=== PATIENT | female | born 1960 | race Caucasian/White ===

== ENCOUNTER → 2017-02-05 | Outpatient (CLI) | payer BC ==
--- NOTE | 2017-02-05 12:08 | RADIOLOGY REPORT (SQ) ---
EXAM DESCRIPTION: HAND BILATERAL 3 VIEWS COMPLETED DATE/TIME: 02/05/2017 11:59 am REASON FOR STUDY: RHEUMATOID HEART DISEASE W RHEUMATOID ARTHRITIS [facility] SITE M05.39 RHEUMATOID HEART DISEASE W RHEUMATOID ARTHRITIS [facility] COMPARISON: None. EXAM PARAMETERS: NUMBER OF VIEWS: Three views right hand. Three views left hand. TECHNIQUE: AP, lateral and oblique radiographic images acquired of bilateral hands. LIMITATIONS: None. FINDINGS: RIGHT HAND: MINERALIZATION: Normal. BONES: No acute fracture or dislocation. No worrisome bone lesions. No significant osteophytes. JOINTS: No erosions. No austen-articular osteopenia. No chondrocalcinosis. SOFT TISSUES: No swelling. No calcifications. OTHER: No other significant finding. LEFT HAND: MINERALIZATION: Normal. BONES: No acute fracture or dislocation. No worrisome bone lesions. No significant osteophytes. JOINTS: No erosions. No austen-articular osteopenia. No chondrocalcinosis. SOFT TISSUES: No swelling. No calcifications. OTHER: No other significant finding. IMPRESSION: NEGATIVE STUDY BILATERAL HANDS. NO ACUTE POST-TRAUMATIC CHANGES. NO EXPLANATION FOR PAIN . NO PLAIN FILM EVIDENCE OF RHEUMATOID ARTHRITIS OF THE RIGHT OR LEFT HAND TECHNICAL DOCUMENTATION: JOB ID: [id number] [employer]- All Rights Reserved
--- NOTE | 2017-02-05 12:15 | RADIOLOGY REPORT (SQ) ---
EXAM DESCRIPTION: KNEE BILAT AP UPRIGHT COMPLETED DATE/TIME: 02/05/2017 11:58 am REASON FOR STUDY: RHEUMATOID HEART DISEASE W RHEUMATOID ARTHRITIS [facility] SITE M05.39 RHEUMATOID HEART DISEASE W RHEUMATOID ARTHRITIS [facility] COMPARISON: None. NUMBER OF VIEWS: Two views. TECHNIQUE: AP standing bilateral knees. LIMITATIONS: None. FINDINGS: MINERALIZATION: Normal. RIGHT KNEE BONES: No acute fracture. No worrisome bone lesions. MEDIAL COMPARTMENT: Small osteophytes. Mild joint space narrowing. No chondrocalcinosis. LATERAL COMPARTMENT: No significant osteophytes. No joint space narrowing. No chondrocalcinosis. LEFT KNEE BONES: No acute fracture. No worrisome bone lesions. MEDIAL COMPARTMENT: No significant osteophytes. Mild joint space narrowing. No chondrocalcinosis. LATERAL COMPARTMENT: No significant osteophytes. No joint space narrowing. No chondrocalcinosis. IMPRESSION: Mild bilateral medial knee compartment joint space narrowing TECHNICAL DOCUMENTATION: JOB ID: [id number] [employer]- All Rights Reserved
== END ==
LOC: OD 11:39
PROVIDERS: ATTEND Internal Medicine
DX: M05.39 Rheumatoid heart disease with rheumatoid arthritis of multiple sites (principal)
CPT/HCPCS: 73565

== ENCOUNTER → 2017-07-13 | Outpatient (CLI) | payer BC ==
[2017-07-18 03:36] LABS: E001-IGE CAT DANDER <0.10 kU/L (Class 0); E005-IGE DOG DANDER <0.10 kU/L (Class 0); G002-IGE BERMUDA GRASS 0.11 kU/L (Class 0/I); G008-IGE BLUEGRASS KENTUCKY 0.14 kU/L (Class 0/I); M006-IGE ALTERNARIA ALTERNATA <0.10 kU/L (Class 0); T008-IGE ELM AMERICAN (WHITE 0.72 kU/L (Class II); W001-IGE RAGWEED SHORT/COMMO 0.15 kU/L (Class 0/I); W009-IGE PLANTAIN ENGLISH 0.18 kU/L (Class 0/I)
[2017-07-18 14:39] LABS: E072-IGE MOUSE URINE <0.10 kU/L (Class 0)
== END ==
LOC: OD 16:33
PROVIDERS: ATTEND Internal Medicine
DX: T78.40XS Allergy, unspecified, sequela (principal)
CPT/HCPCS: 36415; 86003

== ENCOUNTER → 2017-08-19 | Outpatient (CLI) | payer BC ==
--- NOTE | 2017-08-19 12:21 | WOMENS IMAGING REPORT ---
EXAM DESCRIPTION: BILAT SCREENING MAMMO W/CAD COMPLETED DATE/TIME: 08/19/2017 9:28 am REASON FOR STUDY: SCREENING MAMMO Z12.31 ENCNTR SCREEN MAMMOGRAM FOR MALIGNANT NEOPLASM OF [place] COMPARISON: 03/28/2015 and 06/28/2012. TECHNIQUE: Standard craniocaudal and mediolateral oblique views of each breast recorded using [employer] l acquisition. LIMITATIONS: None. FINDINGS: No masses, calcifications or architectural distortion. No areas of suspicion. Read with the assistance of CAD. .[facility] - R2 Cenova Version 1.3 .[facility] Imaging - R2 Cenova Version 1.3 .[facility] Imaging - R2 Cenova Version 2.4 .[facility] - R2 Cenova Version 2.4 .[facility] - R2 Stained Glass Joiner Version 9.2 IMPRESSION: NORMAL MAMMOGRAM. BIRADS 1. BREAST DENSITY: b. There are scattered areas of fibroglandular density. BIRAD: 1 NEGATIVE RECOMMENDATION: ROUTINE SCREENING COMMENT: The patient has been notified of the results by letter per SA requirements. Additional no tification policies are in place for contacting patient with suspicious or incomplete findings. Quality ID #[id number]: The [employer] recommends an annual screening mammogram for women aged 40 years or over. This facility utilizes a reminder system to ensure that all patients receive reminder letters, and/or direct phone calls for appointments. This includes reminders for routine scr eening mammograms, diagnostic mammograms, or other Breast Imaging Interventions when appropriate. Th is patient will be placed in the appropriate reminder system. The [employer] (ACR) has developed recommendations for screening MRI of the breast s in certain patient populations, to be used in conjunction with mammography. Breast MRI surveillanc e may be appropriate for women with more than 20% lifetime risk of developing breast cancer as deter mined by genetic testing, significant family history of the disease, or history of mantle radiation f or Hodgkins Disease. ACR Practice Guidelines 2008. TECHNICAL DOCUMENTATION: FINDING NUMBER: (1) ASSESSMENT: (1) JOB ID: [id number] [employer]- All Rights Reserved
== END ==
LOC: WI 09:13
PROVIDERS: ATTEND Internal Medicine
DX: Z12.31 Encounter for screening mammogram for malignant neoplasm of breast (principal)
CPT/HCPCS: 77067; G0202

== ENCOUNTER → 2017-10-26 | Outpatient (CLI) | payer BC ==
--- NOTE | 2017-10-26 18:05 | RADIOLOGY REPORT (SQ) ---
EXAM DESCRIPTION: MRA HEAD WITHOUT COMPLETED DATE/TIME: 10/26/2017 5:54 pm REASON FOR STUDY: HEADACHE R51 HEADACHE COMPARISON: MRI of the brain dated July 2016 TECHNIQUE: Axial 3-D nlif-rr-[id number] acquisition imaging performed through the brain in the area of t he [place] of [place]. Images reformatted using 3-D MIPS. LIMITATIONS: None. FINDINGS: SOURCE IMAGES: No unexpected findings on source images. No large masses. 3-D MIP: No aneurysm. No occlusions. No significant stenosis. OTHER: No other significant finding. IMPRESSION: NORMAL MRA OF THE [place]. TECHNICAL DOCUMENTATION: JOB ID: [id number] [employer]- All Rights Reserved Reading location - IP/workstation name: [email or web address]
== END ==
LOC: RAD 17:09
PROVIDERS: ATTEND Internal Medicine
DX: R51 Headache (principal)
CPT/HCPCS: 70544

== ENCOUNTER 2017-10-27 11:13 | Emergency (ER) | payer BC ==
--- NOTE | 2017-10-27 11:31 | RADIOLOGY REPORT (SQ) ---
EXAM DESCRIPTION: CT HEAD WITHOUT COMPLETED DATE/TIME: 10/27/2017 11:24 am REASON FOR STUDY: POSS STROKE COMPARISON: None. TECHNIQUE: Axial images acquired through the brain without intravenous contrast. Images reviewed wi th bone, brain and subdural windows. Images stored on PACS. All CT scanners at this facility use dose modulation, iterative reconstruction, and/or weight based d osing when appropriate to reduce radiation dose to as low as reasonably achievable (ALARA). [facility]: Dose Right [facility]: CareDose [facility]: Dose Right [facility]: Teradose 4D [facility]: [employer] RADIATION DOSE: mGy. LIMITATIONS: None. FINDINGS: VENTRICLES: Normal size and contour. CEREBRUM: No masses. No hemorrhage. No midline shift. No evidence for acute infarction. Normal gra y/white matter differentiation. No areas of low density in the white matter. CEREBELLUM: No masses. No hemorrhage. No alteration of density. No evidence for acute infarction. EXTRAAXIAL SPACES: No fluid collections. No masses. ORBITS AND GLOBE: No intra- or extraconal masses. Normal contour of globe without masses. CALVARIUM: No fracture. PARANASAL SINUSES: No fluid or mucosal thickening. SOFT TISSUES: No mass or hematoma. OTHER: No other significant finding. IMPRESSION: NORMAL BRAIN CT WITHOUT CONTRAST. EVIDENCE OF ACUTE STROKE: NO. COMMENT: Quality ID # [id number]: Final reports with documentation of one or more dose reduction techniques (e.g., Automated exposure control, adjustment of the mA and/or kV according to patient size, use of iterative reconstruction technique) TECHNICAL DOCUMENTATION: JOB ID: [id number] [employer]- All Rights Reserved Reading location - IP/workstation name: [email or web address]
[2017-10-27] MEDS ORDERED: NORMAL SALINE 1000 ML 1,000 ML IV ONE (11:39)
[2017-10-27] MEDS ORDERED: PROCHLORPERAZINE EDISYLATE INJ 10 MG/2 ML VIAL IV ONE (11:39)
[2017-10-27 11:40] LABS: INTERNATIONAL RATION (INR) 0.86; PARTIAL THROMBOPLASTIN TIME 24.9 SEC (23.5-35.8); PROTHROMBIN TIME 12.4 SEC (11.4-15.4)
[2017-10-27 11:47] LABS: ABSOLUTE BASOPHILS # (AUTO) 0.1 10^3/uL (0.0-0.2); ABSOLUTE EOSINOPHILS # (AUTO) 0.1 10^3/uL (0.0-0.6); ABSOLUTE LYMPHOCYTES (AUTO) 2.1 10^3/uL (0.5-4.7); ABSOLUTE MONOCYTES (AUTO) 0.7 10^3/uL (0.1-1.4); ABSOLUTE NEUT (AUTO) 3.6 10^3/uL (1.7-8.2); HEMATOCRIT 37.9 % (36.0-47.0); HEMOGLOBIN 13.1 g/dL (12.0-15.5); LYMPHOCYTES % (AUTO) 31.7 % (13-45); MEAN CORPUSCULAR HEMOGLOBIN 29.3 pg (27.0-33.4); MEAN CORPUSCULAR HGB CONC 34.5 g/dL (32.0-36.0); MEAN CORPUSCULAR VOLUME 85 fl (80-97); MONOCYTES % (AUTO) 11.1 % (3-13); PLATELET COUNT 237 10^3/uL (150-450); RED BLOOD COUNT 4.46 10^6/uL (3.72-5.28); RED CELL DISTRIBUTION WIDTH 13.1 % (11.5-14.0); SEGMENTED NEUTROPHILS % (AUTO) 54.2 % (42-78); TOTAL CELLS COUNTED % (AUTO) 100 %; WHITE BLOOD COUNT 6.7 10^3/uL (4.0-10.5)
--- NOTE | 2017-10-27 12:04 | RADIOLOGY REPORT (SQ) ---
EXAM DESCRIPTION: CHEST SINGLE VIEW COMPLETED DATE/TIME: 10/27/2017 11:50 am REASON FOR STUDY: bed 12 stroke alert COMPARISON: April 2009 EXAM PARAMETERS: NUMBER OF VIEWS: One view. TECHNIQUE: Single frontal radiographic view of the chest acquired. RADIATION DOSE: NA LIMITATIONS: None. FINDINGS: LUNGS AND PLEURA: No opacities, masses or pneumothorax. No pleural effusion. MEDIASTINUM AND HILAR STRUCTURES: No masses. Contour normal. HEART AND VASCULAR STRUCTURES: Heart normal in size. Normal vasculature. BONES: No acute findings. HARDWARE: None in the chest. OTHER: No other significant finding. IMPRESSION: NO ACUTE RADIOGRAPHIC FINDING IN THE CHEST. TECHNICAL DOCUMENTATION: JOB ID: [id number] [employer]- All Rights Reserved Reading location - IP/workstation name: [email or web address]
[2017-10-27 12:12] LABS: ALANINE AMINOTRANSFERASE 38 U/L (9-52); ALBUMIN 4.7 g/dL (3.5-5.0); ALKALINE PHOSPHATASE 97 U/L (38-126); ANION GAP 13 (5-19); ASPARTATE AMINO TRANSFERASE 27 U/L (14-36); BILIRUBIN,DIRECT 0.1 mg/dL (0.0-0.4); BILIRUBIN,TOTAL 0.3 mg/dL (0.2-1.3); BLOOD UREA NITROGEN 14 mg/dL (7-20); CALCIUM 9.9 mg/dL (8.4-10.2); CARBON DIOXIDE 25 mmol/L (22-30); CHLORIDE 103 mmol/L (98-107); CREATINE KINASE 122 U/L (30-135); GLUCOSE 132 mg/dL (75-110); POTASSIUM 3.8 mmol/L (3.6-5.0); SODIUM 141.2 mmol/L (137-145); TOTAL PROTEIN 7.3 g/dL (6.3-8.2)
[2017-10-27 12:19] LABS: CREATINE KINASE MB 1.01 ng/mL (<4.55)
[2017-10-27 12:22] LABS: TROPONIN I < 0.012 ng/mL
[2017-10-27] MEDS ORDERED: DEXAMETHASONE SOD PHOS INJ 10 MG/1 ML VIAL IV ONE (12:26)
--- NOTE | 2017-10-27 12:57 | ER Document Report ---
ED Headache - General Chief Complaint: Headache Stated Complaint: POSSIBLE STROKE Time Seen by Provider: 10/27/17 11:27 Mode of Arrival: Medic Information source: Patient Notes: Patient is a 56-year-old female who presents to the ER today via EMS for left sided headache 5 days with some numbness intermittently to the left side of the face. Patient denies any numbness, tingling, weakness anywhere else in her body. Patient states that she saw her primary care provider for this who ordered an MRI that was performed yesterday and normal. She does take medication for blood pressure but denies any history of high cholesterol, heart attack, stroke. TRAVEL OUTSIDE OF THE [place] IN LAST 30 DAYS: No - Related Data Allergies/Adverse Reactions: ibuprofen [From Motrin] Allergy (Verified 10/27/17 11:59) Past Medical History - General Information source: Patient - Social History Smoking Status: Unknown if Ever Smoked Family History: Reviewed & Not Pertinent Patient has suicidal ideation: No Patient has homicidal ideation: No Neurological Medical History: Reports: Hx Migraine Renal/ Medical History: Denies: Hx Peritoneal Dialysis Review of Systems - Review of Systems Constitutional: No symptoms reported EENT: No symptoms reported Cardiovascular: No symptoms reported Respiratory: No symptoms reported Gastrointestinal: No symptoms reported Genitourinary: No symptoms reported Female Genitourinary: No symptoms reported Musculoskeletal: No symptoms reported Skin: No symptoms reported Hematologic/Lymphatic: No symptoms reported Neurological/Psychological: See HPI Physical Exam - Vital signs Vitals: Resp Pulse Ox 17 99 10/27/17 11:24 10/27/17 11:24 - Notes Notes: PHYSICAL EXAMINATION: GENERAL: Anxious appearing, but in no acute distress. HEAD: Atraumatic, normocephalic. EYES: Pupils equal round and reactive to light, extraocular movements intact, sclera anicteric, conjunctiva are normal. NECK: Normal range of motion, supple without lymphadenopathy LUNGS: CTAB and equal. No wheezes rales or rhonchi. HEART: Regular rate and rhythm without murmurs ABDOMEN: Soft, no tenderness. No guarding, no rebound BACK: no vertebral tenderness, normal ROM GI/: no CVA tenderness EXTREMITIES: Normal range of motion, no pitting edema. No cyanosis. NEUROLOGICAL: Cranial nerves grossly intact. Normal sensory/motor exams. Good and equal strength bilaterally, Kernig and Brudzinski's signs negative, Romberg' s test normal, normal heel to stauffer testing PSYCH: Normal mood, normal affect. SKIN: Warm, Dry, normal turgor, no rashes or lesions noted Course - Re-evaluation Re-evalutation: 10/27/17 12:55 Patient has no neuro deficits. Patient feels 100% better after IV fluids, Compazine and Decadron. CAT scan of the head is negative today. I did look at the MRA from yesterday that was also negative. Patient has no increased pain, weakness, numbness or tingling sense being seen by her primary care provider, just "could not take it anymore" and so she came into the ER today. I advised that she follow-up with her primary care provider about this and will send her home with some medication for migraine. - Vital Signs Vital signs: Temp Pulse Resp BP Pulse Ox 98.2 F 75 11 L 134/76 H 98 10/27/17 11:52 10/27/17 11:52 10/27/17 13:01 10/27/17 13:01 10/27/17 13:01 - Laboratory Result Diagrams: 10/27/17 11:23 10/27/17 11:23 Laboratory results interpreted by me: 10/27/17 11:23 Glucose 132 H Discharge - Discharge Clinical Impression: Migraine Qualifiers: Migraine type: unspecified Status migrainosus presence: without status migrainosus Intractability: not intractable Qualified Code(s): G43.909 - Migraine, unspecified, not intractable, without status migrainosus Condition: Stable Disposition: HOME, SELF-CARE Additional Instructions: Return immediately for any new or worsening symptoms. Follow up with primary care provider, call tomorrow to make followup appointment. Prescriptions: Promethazine HCl [Phenergan 25 mg Tablet] 1 - 2 tab PO Q6H PRN #15 tablet PRN Reason: Referrals: JOSE F EASON MD [Primary Care Provider] - Follow up as needed
[2017-10-27 13:19] VITALS: BP 134/76
--- NOTE | 2017-10-27 21:19 | EKG REPORT ---
SEVERITY:- NORMAL ECG - SINUS RHYTHM : Confirmed by: Regulo Emanuel 27-Oct-2017 21:19:19
== END 2017-10-27 13:24 | disposition home or self-care (01) ==
LOC: ER 11:13
DX: G43.909 Migraine, unspecified, not intractable, without status migrainosus (principal); R20.0 Anesthesia of skin; Z79.899 Other long term (current) drug therapy; Z88.6 Allergy status to analgesic agent
CPT/HCPCS: 93005; 99284; 96361; 96374; 96375; 36415; 82553; 82550; 85025; 85610; 85730; 80053; 84484; 71045; 70450; 93010; J0780; J7030; J1100

== ENCOUNTER 2017-11-01 16:14 | Emergency (ER) | payer BC ==
[2017-11-01] MEDS ORDERED: ONDANSETRON 4 MG TAB.RAPDIS PO ONE (17:25)
[2017-11-01] MEDS ORDERED: HYDROMORPHONE HCL 2 MG TABLET PO ONE (17:25)
--- NOTE | 2017-11-01 17:26 | ER Document Report ---
ED Medical Screen (RME) - General Chief Complaint: Headache <24 hrs old Stated Complaint: HEADACHE Time Seen by Provider: 11/01/17 17:19 Mode of Arrival: Ambulatory Information source: Patient Notes: 56-year-old female with a recent neurologic workup presenting with worsening migraine in the setting of elevated blood pressure. TRAVEL OUTSIDE OF THE [place] IN LAST 30 DAYS: No - Related Data Allergies/Adverse Reactions: ibuprofen [From Motrin] Allergy (Verified 11/01/17 16:19) Past Medical History Neurological Medical History: Reports: Hx Migraine Renal/ Medical History: Denies: Hx Peritoneal Dialysis Physical Exam - Vital signs Vitals: Temp Pulse Resp BP Pulse Ox 97.8 F 71 24 H 179/86 H 99 11/01/17 16:35 11/01/17 16:35 11/01/17 16:35 11/01/17 16:35 11/01/17 16:35 Course - Vital Signs Vital signs: Temp Pulse Resp BP Pulse Ox 97.8 F 71 24 H 179/86 H 99 11/01/17 16:35 11/01/17 16:35 11/01/17 16:35 11/01/17 16:35 11/01/17 16:35 Doctor's Discharge - Discharge Referrals: JOSE F EASON MD [Primary Care Provider] - Follow up as needed
[2017-11-01 18:57] LABS: ABSOLUTE BASOPHILS # (AUTO) 0.1 10^3/uL (0.0-0.2); ABSOLUTE EOSINOPHILS # (AUTO) 0.2 10^3/uL (0.0-0.6); ABSOLUTE LYMPHOCYTES (AUTO) 1.9 10^3/uL (0.5-4.7); ABSOLUTE MONOCYTES (AUTO) 0.9 10^3/uL (0.1-1.4); ABSOLUTE NEUT (AUTO) 6.3 10^3/uL (1.7-8.2); BASOPHILS % (AUTO) 0.6 % (0-2); HEMATOCRIT 40.6 % (36.0-47.0); LYMPHOCYTES % (AUTO) 20.7 % (13-45); MEAN CORPUSCULAR HEMOGLOBIN 28.9 pg (27.0-33.4); MEAN CORPUSCULAR HGB CONC 34.4 g/dL (32.0-36.0); MEAN CORPUSCULAR VOLUME 84 fl (80-97); MONOCYTES % (AUTO) 9.9 % (3-13); PLATELET COUNT 296 10^3/uL (150-450); RED BLOOD COUNT 4.82 10^6/uL (3.72-5.28); RED CELL DISTRIBUTION WIDTH 13.1 % (11.5-14.0); SEGMENTED NEUTROPHILS % (AUTO) 66.8 % (42-78); TOTAL CELLS COUNTED % (AUTO) 100 %; WHITE BLOOD COUNT 9.4 10^3/uL (4.0-10.5)
[2017-11-01 19:02] LABS: INTERNATIONAL RATION (INR) 0.88; PROTHROMBIN TIME 12.6 SEC (11.4-15.4)
[2017-11-01 19:15] LABS: ALANINE AMINOTRANSFERASE 35 U/L (9-52); ALBUMIN 4.9 g/dL (3.5-5.0); ALKALINE PHOSPHATASE 99 U/L (38-126); ANION GAP 15 (5-19); ASPARTATE AMINO TRANSFERASE 22 U/L (14-36); BILIRUBIN,DIRECT 0.1 mg/dL (0.0-0.4); BILIRUBIN,TOTAL 0.3 mg/dL (0.2-1.3); BLOOD UREA NITROGEN 14 mg/dL (7-20); CALCIUM 10.1 mg/dL (8.4-10.2); CARBON DIOXIDE 24 mmol/L (22-30); CHLORIDE 100 mmol/L (98-107); GLUCOSE 123 mg/dL (75-110); POTASSIUM 4.2 mmol/L (3.6-5.0); SODIUM 139.2 mmol/L (137-145); TOTAL PROTEIN 7.6 g/dL (6.3-8.2)
[2017-11-01] MEDS ORDERED: PROCHLORPERAZINE EDISYLATE INJ 10 MG/2 ML VIAL IV ONE (19:18)
[2017-11-01] MEDS ORDERED: NORMAL SALINE 1000 ML 1,000 ML IV ONE (19:21)
[2017-11-01] MEDS ORDERED: DIPHENHYDRAMINE HCL 50 MG/ML VIAL ONE (20:16)
[2017-11-01] MEDS ORDERED: DIPHENHYDRAMINE HCL 50 MG/ML VIAL IV ONE (20:16)
--- NOTE | 2017-11-01 20:18 | ER Document Report ---
ED General - General Chief Complaint: Headache <24 hrs old Stated Complaint: HEADACHE Time Seen by Provider: 11/01/17 17:19 Mode of Arrival: Ambulatory Notes: Patient is a 56-year-old female with a past medical history of migraine headaches and essential hypertension who presents with a headache that has been ongoing for the past 4-5 days. Patient was seen in the emergency department approximately 1 week ago as well as by her primary care physician on the fifth of this month for similar headaches. On the fifth she had an MRI/MRA of her head completed which was noted to be unremarkable. She was seen the next day in the emergency department for an ongoing headache with associated concerns of slurred speech and paresthesias of her left upper extremity. At that time her workup was unremarkable including a CT of the head. Patient reports that although she had resolution of her headache at that time the headache did recur the very next day and has been ongoing since that time. She describes it as a severe, constant, throbbing headache that is bilateral but worse on the left. She notes associated nausea but no vomiting as well as neck pain again left. Any form of movement or exertion worsens the headache. Nothing improves her headache. She denies any focal weakness, numbness, dysarthria, aphasia, fever, or altered mental status. No head trauma. TRAVEL OUTSIDE OF THE [place] IN LAST 30 DAYS: No - Related Data Allergies/Adverse Reactions: ibuprofen [From Motrin] Allergy (Verified 11/01/17 16:19) Past Medical History - General Information source: Patient - Social History Smoking Status: Never Smoker Chew tobacco use (# tins/day): No Frequency of alcohol use: None Drug Abuse: None Lives with: Spouse/Significant other Family History: Reviewed & Not Pertinent Patient has suicidal ideation: No Patient has homicidal ideation: No Neurological Medical History: Reports: Hx Migraine Renal/ Medical History: Denies: Hx Peritoneal Dialysis Review of Systems - Review of Systems Notes: Constitutional: Negative for fever. HENT: Negative for sore throat. Eyes: Negative for visual changes. Cardiovascular: Negative for chest pain. Respiratory: Negative for shortness of breath. Gastrointestinal: Negative for abdominal pain, positive for nausea Genitourinary: Negative for dysuria. Musculoskeletal: Negative for back pain. Skin: Negative for rash. Neurological: Positive for headache 10 point ROS negative except as marked above and in HPI. Physical Exam - Vital signs Vitals: Temp Pulse Resp BP Pulse Ox 97.8 F 71 24 H 179/86 H 99 11/01/17 16:35 11/01/17 16:35 11/01/17 16:35 11/01/17 16:35 11/01/17 16:35 Interpretation: Normal Notes: PHYSICAL EXAMINATION: GENERAL: Appears moderately uncomfortable but no acute distress HEAD: Atraumatic, normocephalic. EYES: Pupils equal round and reactive to light, extraocular movements intact, sclera anicteric, conjunctiva are normal. ENT: nares patent, oropharynx clear without exudates. Moist mucous membranes. NECK: Normal range of motion, supple without lymphadenopathy LUNGS: Breath sounds clear to auscultation bilaterally and equal. No wheezes rales or rhonchi. HEART: Regular rate and rhythm without murmurs ABDOMEN: Soft, nontender, normoactive bowel sounds. No guarding, no rebound. No masses appreciated. EXTREMITIES: Normal range of motion, no pitting or edema. No cyanosis. NEUROLOGICAL: Face symmetric. Tongue protrudes midline. Extraocular motions intact. Pupils are 2 mm and equally reactive. Normal speech, normal gait. 5 out of 5 strength in both the distal and proximal upper and lower extremities bilaterally. Sensation is grossly intact throughout. Finger to nose testing normal. Pronator drift normal. PSYCH: Moderately anxious SKIN: Warm, Dry, normal turgor, no rashes or lesions noted. Course - Re-evaluation Re-evalutation: 11/01/17 20:17 Presentation of a headache that appears to be most consistent with tension versus migrainous type headache. Headache was not maximal in onset, patient has no focal neurologic deficits, no nuchal rigidity, vital signs within normal limits, no papilledema, and patient is overall well in appearance. Based on clinical history and examination I do not suspect an acute subarachnoid hemorrhage, dural venous sinus thrombosis, acute meningitis, or intercranial mass. Patient was seen on the sixth of this month with a similar headache, CT the head was noted to be unremarkable that time. An MRI/MRA that was also performed as an outpatient by her primary provider on the fifth of this month was also noted to be normal. Patient is also been having difficulty controlling her blood pressure. at the bedside also notes frequent diaphoresis as well as some mild irritability all that has recently onset in the last several weeks. Rare but possible alternative diagnosis would be a pheochromocytoma. I have encouraged the family to discuss this possibility with the primary care physician if her symptoms are not improving. Also add on additional blood pressure medication in the form of amlodipine to bring her blood pressure under better control as vasospasms could also be causing his recurrent headaches. I will also obtain a CT of the neck to rule out a vertebral artery dissection as patient does complain of a dominant component of left-sided neck pain with a left-sided headache and states that when she was seen on the 6 she had neurologic symptoms including left-sided facial numbness as well as dysarthria. If this is unremarkable will plan for discharge home with close outpatient follow-up. 11/01/17 21:43 CT of the neck does not demonstrate any evidence of a vertebral carotid artery dissection. Patient's headache is improving and I will give additional medications that she has not had yet complete resolution. I will also add amlodipine to her blood pressure regimen at home. At this time will discharge with return precautions and follow-up recommendations. Verbal discharge instructions given a the bedside and opportunity for questions given. Medication warnings reviewed. Patient is in agreement with this plan and has verbalized understanding of return precautions and the need for primary care follow-up in the next 24-72 hours. - Vital Signs Vital signs: Temp Pulse Resp BP Pulse Ox 98.4 F 80 16 147/76 H 100 11/01/17 22:13 11/01/17 22:13 11/01/17 18:59 11/01/17 22:13 11/01/17 22:13 - Laboratory Result Diagrams: 11/01/17 18:40 11/01/17 18:40 Laboratory results interpreted by me: 11/01/17 18:40 Glucose 123 H - Diagnostic Test Radiology reviewed: Reports reviewed Discharge - Discharge Clinical Impression: Recurrent headache Hypertension Qualifiers: Hypertension type: unspecified Qualified Code(s): I10 - Essential (primary) hypertension Condition: Good Disposition: HOME, SELF-CARE Additional Instructions: The MRI of your head that was performed on the fifth was done with contrast did not demonstrate any evidence of masses or aneurysms in your brain. The CT scan of your neck was done today with contrast to evaluate for any evidence of ripping or tearing of any of the blood vessels in your neck. This is also normal. Your blood pressure continues to be elevated today. Please begin taking amlodipine 10 mg daily in addition to the blood pressure medicines you already take. Please continue to follow with your primary care doctor regarding your recurrent headaches and blood pressure. A diagnostic consideration could be a pheochromocytoma although I do think it is highly unlikely you have this. Talk about this possible diagnosis with your primary care doctor further about further evaluation of your ongoing headache and blood pressure problems continue. Please return to the emergency department if you develop weakness, numbness, confusion, persistent vomiting, worsening of your headache, or any other symptoms that are worrisome to you. Prescriptions: Amlodipine Besylate [Norvasc 10 mg Tablet] 10 mg PO DAILY #30 tablet Referrals: JOSE F EASON MD [Primary Care Provider] - Follow up as needed
--- NOTE | 2017-11-01 21:29 | RADIOLOGY REPORT (SQ) ---
EXAM DESCRIPTION: CTA NECK COMPLETED DATE/TIME: 11/01/2017 9:06 pm REASON FOR STUDY: Poss vertebral artery dissection COMPARISON: None. TECHNIQUE: Axial dynamic scanning technique with dynamic contrast enhancement through the extra-military aircraft designer nial carotid and vertebral arteries. Multiplanar reconstruction. 3-D MIPS and Volume-rendered imag es acquired at the workstation and saved to PACS. Images are reviewed in soft tissue, bone, lung w indows. All CT scanners at this facility use dose modulation, iterative reconstruction, and/or weight based d osing when appropriate to reduce radiation dose to as low as reasonably achievable (ALARA). [facility]: Dose Right [facility]: CareDose [facility]: Dose Right [facility]: Teradose 4D [facility]: [employer] CONTRAST TYPE AND DOSE: contrast/concentration: Isovue 370.00 mg/ml; Total Contrast Delivered: 70.0 ml; Total Saline Delivered: 75.0 ml RENAL FUNCTION: Creatinine 0.95 LIMITATIONS: None. FINDINGS: AORTIC ARCH: Normal three-vessel origin. Bilateral subclavian arteries are patent. No d issection. RIGHT CAROTIDS: Patent common, internal and external carotid arteries without suggestion of significa nt stenosis or irregular plaque. No dissection. RIGHT VERTEBRAL: Patent. No dissection. LEFT CAROTIDS: Patent common, internal and external carotid arteries without suggestion of significan t stenosis or irregular plaque. No dissection. LEFT VERTEBRAL: Patent. No dissection. OTHER: No other significant finding. OTHER: 3-D reconstructions confirm findings. IMPRESSION: No evidence of vertebral artery dissection or occlusion. Patent carotid arteries. COMMENT: Quality ID #[id number]: Measurements of distal internal carotid diameter were used as the denomina tor for stenosis measurement. TECHNICAL DOCUMENTATION: JOB ID: [id number] Quality ID # 436: Final reports with documentation of one or more dose reduction techniques (e.g., Au tomated exposure control, adjustment of the mA and/or kV according to patient size, use of iterative reconstruction technique) 2010 [employer]- All Rights Reserved Reading location - IP/workstation name: [email or web address]
[2017-11-01] MEDS ORDERED: HALOPERIDOL LACTATE INJ 5 MG/1 ML VIAL IV ONE (21:41)
[2017-11-01] MEDS ORDERED: HYDRALAZINE HCL INJ/PF 20 MG/1 ML SDV IV ONE (21:41)
[2017-11-01 22:14] VITALS: BP 147/76
== END 2017-11-01 22:26 | disposition home or self-care (01) ==
LOC: ER 16:14
DX: R51 Headache (principal); I10 Essential (primary) hypertension; Z88.6 Allergy status to analgesic agent
CPT/HCPCS: 99284; 96361; 96374; 96375; 36415; 85025; 85610; 80053; 70498; J1200; S0119; J1630; J0360; J0780; J7030

== ENCOUNTER 2017-12-07 17:30 | Observation (INO) | payer BC ==
--- NOTE | 2017-12-07 18:46 | RADIOLOGY REPORT (SQ) ---
EXAM DESCRIPTION: CHEST SINGLE VIEW COMPLETED DATE/TIME: 12/07/2017 6:35 pm REASON FOR STUDY: Chest Pain COMPARISON: 10/27/2017. EXAM PARAMETERS: NUMBER OF VIEWS: One view. TECHNIQUE: Single frontal radiographic view of the chest acquired. RADIATION DOSE: NA LIMITATIONS: None. FINDINGS: LUNGS AND PLEURA: No opacities, masses or pneumothorax. No pleural effusion. MEDIASTINUM AND HILAR STRUCTURES: No masses. Contour normal. HEART AND VASCULAR STRUCTURES: Heart normal in size. Normal vasculature. BONES: No acute findings. HARDWARE: None in the chest. OTHER: No other significant finding. IMPRESSION: NO ACUTE RADIOGRAPHIC FINDING IN THE CHEST. TECHNICAL DOCUMENTATION: JOB ID: [id number] [employer]- All Rights Reserved Reading location - IP/workstation name: [email or web address]
[2017-12-07 18:48] LABS: ABSOLUTE EOSINOPHILS # (AUTO) 0.2 10^3/uL (0.0-0.6); ABSOLUTE LYMPHOCYTES (AUTO) 1.7 10^3/uL (0.5-4.7); ABSOLUTE MONOCYTES (AUTO) 1.1 10^3/uL (0.1-1.4); BASOPHILS % (AUTO) 0.4 % (0-2); EOSINOPHILS % (AUTO) 1.5 % (0-6); HEMATOCRIT 37.4 % (36.0-47.0); HEMOGLOBIN 12.7 g/dL (12.0-15.5); LYMPHOCYTES % (AUTO) 15.6 % (13-45); MEAN CORPUSCULAR VOLUME 85 fl (80-97); MONOCYTES % (AUTO) 9.6 % (3-13); PLATELET COUNT 267 10^3/uL (150-450); RED CELL DISTRIBUTION WIDTH 13.3 % (11.5-14.0); SEGMENTED NEUTROPHILS % (AUTO) 72.9 % (42-78); TOTAL CELLS COUNTED % (AUTO) 100 %
[2017-12-07 19:06] LABS: ALBUMIN 4.8 g/dL (3.5-5.0); ANION GAP 13 (5-19); BLOOD UREA NITROGEN 19 mg/dL (7-20); CARBON DIOXIDE 25 mmol/L (22-30); CHLORIDE 103 mmol/L (98-107); GLUCOSE 134 mg/dL (75-110); SODIUM 141.1 mmol/L (137-145); TOTAL PROTEIN 7.5 g/dL (6.3-8.2)
[2017-12-07 19:07] LABS: ALANINE AMINOTRANSFERASE 54 U/L (9-52); ALKALINE PHOSPHATASE 96 U/L (38-126); ASPARTATE AMINO TRANSFERASE 38 U/L (14-36); BILIRUBIN,DIRECT 0.2 mg/dL (0.0-0.4); BILIRUBIN,TOTAL 0.4 mg/dL (0.2-1.3); CALCIUM 10.3 mg/dL (8.4-10.2); CREATINE KINASE 124 U/L (30-135)
[2017-12-07 19:16] LABS: CREATINE KINASE MB 1.39 ng/mL (<4.55)
[2017-12-07 19:17] LABS: TROPONIN I < 0.012 ng/mL
[2017-12-07 20:41] LABS: APPEARANCE,URINE CLEAR; BILIRUBIN,URINE NEGATIVE (NEGATIVE); COLOR,URINE COLORLESS; GLUCOSE, URINE NEGATIVE (NEGATIVE); KETONES,URINE TRACE mg/dL (NEGATIVE); LEUKOCYTE ESTERASE,URINE NEGATIVE (NEGATIVE); NITRITE,URINE NEGATIVE (NEGATIVE); PROTEIN,URINE NEGATIVE (NEGATIVE); URINE SPECIFIC GRAVITY 1.005; UROBILINOGEN,URINE NEGATIVE mg/dL (<2.0)
[2017-12-07] MEDS ORDERED: BUTALB/ACETAMINOPHEN/CAFFEINE 1 TAB EACH PO PRN (20:47)
[2017-12-07] MEDS ORDERED: METOPROLOL SUCCINATE 25 MG TAB.SR.24H PO PRN (20:47)
[2017-12-07] MEDS ORDERED: DICLOFENAC SODIUM 25 MG TABLET.DR PO PRN (20:47)
--- NOTE | 2017-12-07 21:09 | EKG REPORT ---
SEVERITY:- NORMAL ECG - SINUS RHYTHM : Confirmed by: Regulo Emanuel 07-Dec-2017 21:09:06
[2017-12-08 03:18] LABS: CREATINE KINASE MB 1.04 ng/mL (<4.55)
[2017-12-08 03:24] LABS: TROPONIN I < 0.012 ng/mL
[2017-12-08] MEDS ORDERED: AMLODIPINE BESYLATE 5 MG TABLET PO SCH (10:00)
[2017-12-08] MEDS ORDERED: AMLODIPIN PO SCH (10:00)
[2017-12-08] MEDS ORDERED: ASPIRIN 81 MG TABLET, CHEWABLE PO SCH (10:00)
[2017-12-08] MEDS ORDERED: HCTHIAZID PO SCH (10:00)
[2017-12-08] MEDS ORDERED: [UNRECOGNIZED DRUG - OTHER] PO SCH (10:00)
[2017-12-08] MEDS ORDERED: OLMESARTAN PO SCH (10:00)
[2017-12-08] MEDS ORDERED: LOSARTAN POTASSIUM 50 MG TABLET PO SCH (10:00)
[2017-12-08] MEDS: LORATADINE 10 MG TABLET PO SCH (10:30)
[2017-12-08] MEDS: ASPIRIN 81 MG TABLET, ENT COATED PO SCH (10:31)
[2017-12-08] MEDS: FLUTICASONE NASAL SPRAY 50 MCG/SPRY 120 SPRAY/16 GM NASL SCH (10:32)
[2017-12-08] MEDS ORDERED: HCTZ PO ONE (11:00)
[2017-12-08] MEDS ORDERED: OLMESARTAN PO ONE (11:00)
[2017-12-08] MEDS ORDERED: AMLODIPINE PO ONE (11:00)
[2017-12-08 12:12] LABS: CREATINE KINASE MB 0.71 ng/mL (<4.55)
[2017-12-08 12:14] LABS: TROPONIN I < 0.012 ng/mL
--- NOTE | 2017-12-08 20:27 | PDOC H&P ---
History of Present Illness Admission Date/PCP: 12/07/17 17:30 JOSE F EASON MD History of Present Illness: JACINTO BRISENO is a 56 year old female, She came to the office for evaluation of few days onset of chest pressure triggered by activity and relieved by rest. In the office a 12-lead EKG was done, it was sinus rhythm there was no acute ST-T segment change. Because the chest symptoms was typical for angina it was felt that she needed to be admitted to the hospital for further evaluation Past Medical History Cardiac Medical History: Reports: Hypertension Pulmonary Medical History: Reports: Other - Allergy Neurological Medical History: Reports: Migraine Social History Smoking Status: Former Smoker Frequency of Alcohol Use: None Hx Recreational Drug Use: No Drugs: None Hx Prescription Drug Abuse: No Family History Family History: Reviewed & Not Pertinent Parental Family History Reviewed: Yes Children Family History Reviewed: Yes Sibling(s) Family History Reviewed.: Yes Medication/Allergy Home Medications: Aspirin [Aspirin 81 mg Chewable Tablet] 81 mg PO DAILY 12/07/17 Butalb/Acetaminophen/Caffeine [Fioricet 50-300-40 mg Capsule] 1 cap PO Q4HP PRN 12/07/17 Diclofenac Sodium [Voltaren 25 Mg Tablet] 25 mg PO DAILYP PRN 12/07/17 Fluticasone Propionate [Flonase Nasal [place] 50 Mcg/[place] 16 gm] 1 spray NAREB DAILY 12/07/17 Loratadine [Claritin 10 mg Tablet] 10 mg PO DAILY 12/07/17 Metoprolol Succinate [Toprol Xl 25 mg Tab.sr] 25 mg PO DAILYP PRN 12/07/17 Olmesartan/Amlodipin/Hcthiazid [Xncdkby-Cmdbia-Vasl 40-10-12.5] 0.5 tab PO DAILY 12/07/17 Potassium Chloride [Klor-Con 10 Meq Tablet.sa] 10 meq PO Q48H 12/07/17 Allergies/Adverse Reactions: ibuprofen [From Motrin] Allergy (Verified 11/01/17 16:19) Review of Systems Constitutional: ABSENT: chills, fever(s), headache(s), weight gain, weight loss Eyes: ABSENT: visual disturbances Ears: ABSENT: hearing changes Cardiovascular: PRESENT: chest pain Respiratory: ABSENT: cough, hemoptysis Gastrointestinal: ABSENT: abdominal pain, constipation, diarrhea, hematemesis, hematochezia, nausea, vomiting Genitourinary: ABSENT: dysuria, hematuria Musculoskeletal: ABSENT: joint swelling Integumentary: ABSENT: rash, wounds Neurological: ABSENT: abnormal gait, abnormal speech, confusion, dizziness, focal weakness, syncope Psychiatric: ABSENT: anxiety, depression, homidical ideation, suicidal ideation Endocrine: ABSENT: cold intolerance, heat intolerance, menstrual abnormalities, polydipsia, polyuria Hematologic/Lymphatic: ABSENT: easy bleeding, easy bruising, lymphadenopathy Physical Exam Vital Signs: Temp Pulse Resp BP Pulse Ox 98.2 F 72 16 114/71 99 12/08/17 19:37 12/08/17 19:37 12/08/17 19:37 12/08/17 19:37 12/08/17 19:37 Intake & Output 12/07/17 12/08/17 12/09/17 06:59 06:59 06:59 Intake Total 540 823 Output Total 1650 1300 Balance -1110 -477 Weight 88.2 kg General appearance: PRESENT: no acute distress, well-developed, well-nourished Head exam: PRESENT: atraumatic, normocephalic Eye exam: PRESENT: conjunctiva pink, EOMI, PERRLA Ear exam: PRESENT: normal external ear exam Mouth exam: PRESENT: moist, tongue midline Neck exam: PRESENT: full ROM Respiratory exam: PRESENT: clear to auscultation guillermo Cardiovascular exam: PRESENT: RRR, +S1, +S2 Pulses: PRESENT: normal dorsalis pedis pul, +2 pedal pulses bilateral Vascular exam: PRESENT: normal capillary refill GI/Abdominal exam: PRESENT: normal bowel sounds, soft Rectal exam: PRESENT: deferred Neurological exam: PRESENT: alert, awake, oriented to person, oriented to place , oriented to time, oriented to situation, CN II-XII grossly intact Psychiatric exam: PRESENT: appropriate affect, normal mood Skin exam: PRESENT: dry, intact, warm Results Laboratory Results: 12/07/17 18:40 12/07/17 18:40 12/07/17 19:25 Urine Color COLORLESS Urine Appearance CLEAR Urine pH 6.0 Ur Specific [place] 1.005 Urine Protein NEGATIVE Urine Glucose (UA) NEGATIVE Urine Ketones TRACE H Urine Blood NEGATIVE Urine Nitrite NEGATIVE Ur Leukocyte Esterase NEGATIVE Urine WBC (Auto) 1 12/07/17 12/07/17 12/08/17 18:40 18:40 02:42 Creatine Kinase 124 74 CK-MB (CK-2) 1.39 Troponin I < 0.012 12/08/17 12/08/17 12/08/17 02:42 11:10 11:10 Creatine Kinase 79 CK-MB (CK-2) 1.04 0.71 Troponin I < 0.012 < 0.012 Impressions: Chest X-Ray 12/07/17 00:00 IMPRESSION: NO ACUTE RADIOGRAPHIC FINDING IN THE CHEST. Assessment & Plan - Diagnosis (1) Chest pain Qualifiers: Chest pain type: unspecified Qualified Code(s): R07.9 - Chest pain, unspecified Is this a current diagnosis for this admission?: Yes Plan: The chest pain is suspicious for ischemic chest pain, she is admitted into the hospital to rule out acute coronary syndrome, probably get a stress test in the morning
[2017-12-08 21:19] LABS: ALANINE AMINOTRANSFERASE 51 U/L (9-52); ALBUMIN 4.9 g/dL (3.5-5.0); ALKALINE PHOSPHATASE 78 U/L (38-126); ANION GAP 14 (5-19); ASPARTATE AMINO TRANSFERASE 33 U/L (14-36); BILIRUBIN,DIRECT 0.3 mg/dL (0.0-0.4); BILIRUBIN,TOTAL 0.5 mg/dL (0.2-1.3); BLOOD UREA NITROGEN 18 mg/dL (7-20); CALCIUM 10.4 mg/dL (8.4-10.2); CARBON DIOXIDE 24 mmol/L (22-30); CHLORIDE 103 mmol/L (98-107); GLUCOSE 114 mg/dL (75-110); POTASSIUM 4.2 mmol/L (3.6-5.0); SODIUM 141.1 mmol/L (137-145); TOTAL PROTEIN 8.2 g/dL (6.3-8.2)
[2017-12-09] MEDS ORDERED: HCTZ PO SCH (10:00)
[2017-12-09] MEDS ORDERED: OLMESARTAN PO SCH (10:00)
[2017-12-09] MEDS ORDERED: POTASSIUM CHLORIDE 10 MEQ TABLET.SA PO SCH (10:00)
[2017-12-09] MEDS ORDERED: AMLODIPINE PO SCH (10:00)
[2017-12-09] MEDS: ASPIRIN 81 MG TABLET, ENT COATED PO SCH (10:10)
[2017-12-09] MEDS: LORATADINE 10 MG TABLET PO SCH (10:10)
[2017-12-09] MEDS: FLUTICASONE NASAL SPRAY 50 MCG/SPRY 120 SPRAY/16 GM NASL SCH (10:10)
[2017-12-09] MEDS ORDERED: REGADENOSON INJ 0.4 MG/5 ML DISP.SYRIN IV ONE (12:42)
[2017-12-09] MEDS ORDERED: AMINOPHYLLINE INJ/PF 250 MG/10 ML SDV IV ONE (12:42)
[2017-12-09 12:56] VITALS: BP 115/70
--- NOTE | 2017-12-09 13:22 | DRAGON STRESS TEST REPORT ---
INTRAVENOUS LEXISCAN CARDIOLITE STRESS TEST USING SINGLE PHOTON EMMISION COMPUTERIZED TOMOGRAPHIC. DATE OF PROCEDURE: December 09, 2017, INDICATION : Chest pain CARDIAC RISK FACTORS: Hypertension, family history of myocardial infarction RESTING EKG: Sinus rhythm, minor nonspecific ST-T wave changes STRESS EKG: No significant ST segment changes noted with LexiScan bolus REASON FOR TERMINATION: Protocol. PROCEDURE REPORT: Baseline heart rate 118 beats per minute with blood pressure of 200/91. Patient had no significant complaints. Patient was bolused with Lexiscan 0.4 mg intravenously followed by saline bolus. Heart rate at 2 minutes post bolus 148 with a blood pressure of 157/81. 3 minutes post bolus heart rate 139 with blood pressure of 183/88. No significant EKG changes were noted. Patient had no significant complaints during the procedure or postprocedure. Patient injected with Aminophyllin 75 mg at 3 minutes or later after Lexiscan bolus. CONCLUSIONS: Normal EKG and hemodynamic response to IV LexiScan. NUCLEAR DATA: At rest the patient was given 13.38 millicuries of technetium 99 sestamibi injected intravenously. As per protocol rest gated SPECT images were obtained. On day of stress test, the patient was given intravenous LexiScan at a dose of 0.4 mg in 5 mL intravenously, followed by flush with normal saline. Subsequently the stress dose of 39.5 millicuries of technetium 99 sestamibi was injected intravenously. As per protocol stress gated images were obtained. NUCLEAR INTERPRETATION: Both raw and processed data were used for interpretation. Visual, qualitative, computer-generated quantitative data was used. There was good myocardial uptake of technetium compound. Motion artifact and soft tissue attenuations were noted. Increased visceral uptake was noted. No definitive areas of transient perfusion defect noted, No definitive areas of fixed perfusion defect or scars noted. EKG gated imaging showed LV EF at 65 %, rest and stress gated EF similar visually. T. I D. ratio was 1.32. Lung heart ratio noted to be within normal limits 0.34. No significant extracardiac and abnormal radiotracer activities were noted. RV free wall uptake was noted to be WNL. IMPRESSION: Also refer to comments under nuclear interpretation. Also test results needs to be interpreted in the context of pretest probability. 1. No definitive areas of transient perfusion defect noted. 2. There is no definitive scintigraphic evidence of myocardial infarction/scar. 3. EKG gated imaging shows left ventricular ejection fraction of approx. 65 %. 4. Mild transient ischemic dilatation noted. Most recent literature review, journal of nuclear medicine November 2013, transient ischemic dilatation in the absence of significant perfusion abnormality may not necessarily indicate increased cardiovascular event risk. Please note that patient had baseline tachycardia. Clinical correlation requested as occasionally single vessel disease or balanced ischemia could be missed. In approximately 10% of the cases Lexiscan may not cause adequate vasodilatory stress. RECOMMENDATIONS: Aggressive risk factor modification and medical management. Further evaluation may be needed if continued symptoms or other high risk indicators are noted on clinical evaluation. Close cardiology follow-up is also recommended. Clinical correlation with echocardiogram derived ejection fraction. Inability to exercise by itself can lead to increased cardiovascular event risks. Consider cardiology consultation and or follow-up if clinically indicated. I am available for cardiology evaluation and consultation if requested by the freight sorter, unless patient already has a compliance review specialist. JANIS
[2017-12-09] MEDS ORDERED: ALPRAZOLAM 0.5 MG TABLET PO ONE (14:01)
--- NOTE | 2017-12-09 15:26 | PDOC DISCHARGE SUMMARY ---
General - Admit/Disc Date/PCP Admission Date/Primary Care Provider: 12/07/17 17:30 JOSE F EASON MD Discharge Date: 12/09/17 - Discharge Diagnosis (1) Chest pain Is this a current diagnosis for this admission?: Yes (2) Anxiety Is this a current diagnosis for this admission?: Yes - Additional Information Prescriptions: Buspirone HCl [Buspar 15 mg Tablet] 1 tab PO BID #60 tab Home Medications: Potassium Chloride [Klor-Con 10 Meq Tablet.sa] 10 meq PO Q48H 12/07/17 RX: Aspirin [Aspirin 81 mg Chewable Tablet] 81 mg PO DAILY 12/07/17 RX: Fluticasone Propionate [Flonase Nasal [place] 50 Mcg/[place] 16 gm] 1 spray NAREB DAILY 12/07/17 RX: Loratadine [Claritin 10 mg Tablet] 10 mg PO DAILY 12/07/17 RX: Metoprolol Succinate [Toprol Xl 25 mg Tab.sr] 25 mg PO DAILYP PRN 12/07/17 RX: Olmesartan/Amlodipin/Hcthiazid [Cfmjtaw-Nlsoxt-Ussi 40-10-12.5] 0.5 tab PO DAILY 12/07/17 Buspirone HCl [Buspar 15 mg Tablet] 1 tab PO BID #60 tab 12/09/17 History of Present Illness History of Present Illness: JACINTO BRISENO is a 56 year old female, She came to the office for evaluation of few days onset of chest pressure triggered by activity and relieved by rest. In the office a 12-lead EKG was done, it was sinus rhythm there was no acute ST-T segment change. Because the chest symptoms was typical for angina it was felt that she needed to be admitted to the hospital for further evaluation Hospital Course Hospital Course: She was admitted for the management of chest pain, 3 sets of cardiac enzymes was negative for acute PA, she underwent Lexiscan Cardiolite stress test, it was negative for any reversibility. She has very anxious requiring benzodiazepine, Xanax, 1 mg 1 dose Physical Exam Vital Signs: Temp Pulse Resp BP Pulse Ox 98.6 F 103 H 18 115/70 98 12/09/17 11:18 12/09/17 11:18 12/09/17 11:18 12/09/17 11:18 12/09/17 11:18 Intake & Output 12/08/17 12/09/17 12/10/17 06:59 06:59 06:59 Intake Total 540 1633 520 Output Total 1650 2200 300 Balance -1110 -567 220 Weight 88.2 kg General appearance: PRESENT: no acute distress, well-developed, well-nourished Head exam: PRESENT: atraumatic, normocephalic Eye exam: PRESENT: conjunctiva pink, EOMI, PERRLA Ear exam: PRESENT: normal external ear exam Mouth exam: PRESENT: moist, tongue midline Neck exam: PRESENT: full ROM Respiratory exam: PRESENT: clear to auscultation guillermo Cardiovascular exam: PRESENT: RRR, +S1, +S2 Pulses: PRESENT: normal dorsalis pedis pul, +2 pedal pulses bilateral Vascular exam: PRESENT: normal capillary refill GI/Abdominal exam: PRESENT: normal bowel sounds, soft Rectal exam: PRESENT: deferred Neurological exam: PRESENT: alert, awake, oriented to person, oriented to place , oriented to time, oriented to situation, CN II-XII grossly intact Psychiatric exam: PRESENT: appropriate affect, normal mood Skin exam: PRESENT: dry, intact, warm Results Laboratory Results: 12/07/17 18:40 12/08/17 20:45 12/08/17 20:45 Sodium 141.1 Potassium 4.2 Chloride 103 Carbon Dioxide 24 Anion Gap 14 BUN 18 Creatinine 0.90 Est GFR ( Amer) > 60 Est GFR (Non-Af Amer) > 60 Glucose 114 H Calcium 10.4 H Total Bilirubin 0.5 AST 33 ALT 51 Alkaline Phosphatase 78 Total Protein 8.2 Albumin 4.9 12/07/17 12/07/17 12/08/17 18:40 18:40 02:42 Creatine Kinase 124 74 CK-MB (CK-2) 1.39 Troponin I < 0.012 12/08/17 12/08/17 12/08/17 02:42 11:10 11:10 Creatine Kinase 79 CK-MB (CK-2) 1.04 0.71 Troponin I < 0.012 < 0.012 Impressions: Chest X-Ray 12/07/17 00:00 IMPRESSION: NO ACUTE RADIOGRAPHIC FINDING IN THE CHEST. Qualifiers - * PATEINT BEING DISCHARGED WITH ANY OF THE FOLLOWING DIAGNOSIS?: No
--- NOTE | 2017-12-09 22:31 | EKG REPORT ---
SEVERITY:- ABNORMAL ECG - SINUS TACHYCARDIA LVH WITH SECONDARY REPOLARIZATION ABNORMALITY : Confirmed by: Regulo Emanuel 09-Dec-2017 22:31:04
== END 2017-12-09 16:21 | disposition home or self-care (01) ==
LOC: 3W 17:30
PROVIDERS: ADMIT Internal Medicine; ATTEND Internal Medicine
DX: R07.89 Other chest pain (principal); F41.9 Anxiety disorder, unspecified; I10 Essential (primary) hypertension; Z79.82 Long term (current) use of aspirin; Z79.899 Other long term (current) drug therapy; Z87.891 Personal history of nicotine dependence
CPT/HCPCS: 36415 ×2; 82553 ×2; 82550 ×2; 85025; 80076; 80048; 80053; 81001; 84484 ×2; 83036; 85379; 93017; 71045; 78452; 93005 ×2; 93010 ×2; G0378 ×3; G0379; A9500; J2785; J0280; Q9969

== ENCOUNTER → 2018-10-08 | Outpatient (CLI) | payer BC ==
--- NOTE | 2018-10-11 16:19 | WOMENS IMAGING REPORT ---
EXAM DESCRIPTION: 3D SCREENING MAMMO BILAT COMPLETED DATE/TIME: 10/08/2018 4:10 pm REASON FOR STUDY: ROUTINE BILATERAL SCREENING MAMMO Z12.31 Z12.31 ENCNTR SCREEN MAMMOGRAM FOR MALIG NANT NEOPLASM OF STEFANIE COMPARISON: 2011 to 2016 TECHNIQUE: Standard craniocaudal and mediolateral oblique views of each breast recorded using digita l acquisition and breast tomosynthesis. LIMITATIONS: None. FINDINGS: No masses, calcifications or architectural distortion. No areas of suspicion. Read with the assistance of CAD. .[facility] - R2 [employer] Version 1.3 .[facility] Imaging - R2 Cenova Version 2.1 .[facility] Imaging - R2 Cenova Version 2.4 .[facility] [place] - R2 Cenova Version 2.4 .[facility] - R2 Nutrition Teacher Version 9.2 IMPRESSION: NORMAL MAMMOGRAM. BIRADS 1. BREAST DENSITY: b. There are scattered areas of fibroglandular density. BIRAD: 1 NEGATIVE RECOMMENDATION: ROUTINE SCREENING COMMENT: The patient has been notified of the results by letter per SA requirements. Additional no tification policies are in place for contacting patient with suspicious or incomplete findings. Quality ID #225: The [employer] recommends an annual screening mammogram for women aged 40 years or over. This facility utilizes a reminder system to ensure that all patients receive reminder letters, and/or direct phone calls for appointments. This includes reminders for routine scr eening mammograms, diagnostic mammograms, or other Breast Imaging Interventions when appropriate. Th is patient will be placed in the appropriate reminder system. The [employer] (ACR) has developed recommendations for screening MRI of the breast s in certain patient populations, to be used in conjunction with mammography. Breast MRI surveillanc e may be appropriate for women with more than 20% lifetime risk of developing breast cancer as deter mined by genetic testing, significant family history of the disease, or history of mantle radiation f or Hodgkins Disease. ACR Practice Guidelines 2008. DBT Technology DBT is a type of tomographic mammography. With conventional mammography, overlapping breast tissue ma y make lesions difficult to detect, even with good compression. DBT uses an x-ray tube that rotates a round the breast, taking images at different angles. These images are then combined to create thin sl ices of the breast that the radiologist can view as a 3D reconstruction. The [employer] unit can perform full-field digital mammograms (2D imaging); or DBT (3D imaging); or both, in a combination mode that quickly performs both the mammogram and the tomosynthesis scan while the breast is still compressed. PQRS 6045F: Fluoroscopic imaging is not utilized for breast tomosynthesis. TECHNICAL DOCUMENTATION: FINDING NUMBER: (1) ASSESSMENT: (1) JOB ID: [id number] [employer]- All Rights Reserved Reading location - IP/workstation name: [email or web address]
== END ==
LOC: WI 15:17
PROVIDERS: ATTEND Internal Medicine
DX: Z12.31 Encounter for screening mammogram for malignant neoplasm of breast (principal)
CPT/HCPCS: 77063; 77067

== ENCOUNTER 2018-10-11 05:35 | Day surgery (SDC) | payer BC, OTHER ==
[2018-10-08 12:00] LABS: HEMATOCRIT 37.9 % (36.0-47.0); HEMOGLOBIN 13.1 g/dL (12.0-15.5); MEAN CORPUSCULAR HGB CONC 34.6 g/dL (32.0-36.0); MEAN CORPUSCULAR VOLUME 84 fl (80-97); PLATELET COUNT 307 10^3/uL (150-450); RED BLOOD COUNT 4.51 10^6/uL (3.72-5.28); RED CELL DISTRIBUTION WIDTH 13.6 % (11.5-14.0); WHITE BLOOD COUNT 8.7 10^3/uL (4.0-10.5)
[2018-10-08 12:11] LABS: APPEARANCE,URINE CLEAR; BILIRUBIN,URINE NEGATIVE (NEGATIVE); COLOR,URINE STRAW; GLUCOSE, URINE NEGATIVE (NEGATIVE); KETONES,URINE NEGATIVE (NEGATIVE); LEUKOCYTE ESTERASE,URINE NEGATIVE (NEGATIVE); NITRITE,URINE NEGATIVE (NEGATIVE); PROTEIN,URINE NEGATIVE (NEGATIVE); URINE SPECIFIC GRAVITY 1.006; UROBILINOGEN,URINE NEGATIVE mg/dL (<2.0)
[2018-10-08 12:25] LABS: ANION GAP 15 (5-19); BLOOD UREA NITROGEN 18 mg/dL (7-20); CALCIUM 10.1 mg/dL (8.4-10.2); CARBON DIOXIDE 24 mmol/L (22-30); CHLORIDE 103 mmol/L (98-107); GLUCOSE 108 mg/dL (75-110); POTASSIUM 4.1 mmol/L (3.6-5.0); SODIUM 141.6 mmol/L (137-145)
--- NOTE | 2018-10-08 12:32 | RADIOLOGY REPORT (SQ) ---
EXAM DESCRIPTION: CHEST PA/LATERAL COMPLETED DATE/TIME: 10/08/2018 12:18 pm REASON FOR STUDY: PRE OP WORKUP COMPARISON: 05/08/2009 EXAM PARAMETERS: NUMBER OF VIEWS: two views TECHNIQUE: Digital Frontal and Lateral radiographic views of the chest acquired. RADIATION DOSE: NA LIMITATIONS: none FINDINGS: LUNGS AND PLEURA: No opacities, masses or pneumothorax. No pleural effusion. MEDIASTINUM AND HILAR STRUCTURES: No masses or contour abnormalities. HEART AND VASCULAR STRUCTURES: Heart normal size. No evidence for failure. BONES: No acute findings. HARDWARE: None in the chest. OTHER: No other significant finding. IMPRESSION: 1. NO SIGNIFICANT RADIOGRAPHIC FINDING IN THE CHEST. TECHNICAL DOCUMENTATION: JOB ID: [id number] [employer]- All Rights Reserved Reading location - IP/workstation name: [email or web address]
--- NOTE | 2018-10-08 21:19 | EKG REPORT ---
SEVERITY:- NORMAL ECG - SINUS RHYTHM : Confirmed by: Dorothea Valdes MD 08-Oct-2018 21:18:37
[~2018-10-11 05:35] MED LIST: CEFAZOLIN 2 GM/D5W RTU 2 GM/50 ML RTUPB IV PRN; LACTATED RINGERS 1000 ML IV PRN; LIDOCAINE 0.5% INJ-PF (5 MG/ML) 50 ML SDV SUBCUT PRN
[2018-10-11] MEDS ORDERED: CEFAZOLIN 2 GM/D5W RTU 2 GM/50 ML RTUPB IV ONE (05:43)
[2018-10-11] MEDS ORDERED: FENTANYL CITRATE INJ/PF 100 MCG/2 ML AMPUL ONE (06:37)
[2018-10-11] MEDS ORDERED: PROPOFOL INJ 200 MG/20 ML VIAL IV ONE (06:37)
[2018-10-11] MEDS ORDERED: ONDANSETRON HCL INJ/PF 4 MG/2 ML SDV ONE (06:37)
[2018-10-11] MEDS ORDERED: ACETAMINOPHEN 1,000 MG/100 ML RTUPB IV ONE (06:37)
[2018-10-11] MEDS ORDERED: MIDAZOLAM 2 MG/2 ML INJ ONE (06:37)
[2018-10-11] MEDS ORDERED: BUPIVACAINE HCL 0.5 % INJ/PF 30 ML SDV ONE (07:08)
[2018-10-11] MEDS ORDERED: LIDOCAINE 1%/EPINEPHRINE INJ 20 ML VIAL ONE (07:09)
[2018-10-11] MEDS ORDERED: MORPHINE SULFATE 10 MG/ML INJ IV PRN (08:02)
[2018-10-11] MEDS ORDERED: DIPHENHYDRAMINE HCL 50 MG/ML VIAL IV PRN (08:02)
[2018-10-11] MEDS ORDERED: MEPERIDINE HCL/PF INJ 25 MG/1 ML DISP.SYRIN IV PRN (08:02)
[2018-10-11] MEDS ORDERED: PROMETHAZINE HCL INJ 25 MG/1 ML VIAL IV PRN (08:02)
[2018-10-11] MEDS ORDERED: FENTANYL CITRATE INJ/PF 100 MCG/2 ML AMPUL IV PRN ×3 (08:02)
--- NOTE | 2018-10-11 08:13 | Discharge Summary ---
Discharge Summary (SDC) - Discharge Final Diagnosis: Left medial meniscal tear Date of Surgery: 10/11/18 Discharge Date: 10/11/18 Condition: Good Treatment or Instructions: Removed compressive wrap on Thursday. Underlying OpSite can remain in place until you return to the office Prescriptions: Oxycodone HCl/Acetaminophen [Percocet 5-325 mg Tablet] 1 tab PO Q6 PRN #25 tab PRN Reason: Referrals: JOSE F EASON MD [Primary Care Provider] - Discharge Diet: As Tolerated, Regular Respiratory Treatments at Home: Deep Breathing/Coughing Discharge Activity: Activity As Tolerated Home Care Assistance: None Needed Report the Following to Your Physician Immediately: Shortness of Breath, Fever over 101 Degrees, Drainage-Foul Smelling
--- NOTE | 2018-10-11 08:15 | Operative Report ---
Operative Report DATE OF SURGERY: 10/11/18 PREOPERATIVE DIAGNOSIS: Left medial meniscal tear POSTOPERATIVE DIAGNOSIS: Left medial meniscal tear. 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 Chondral injury medial femoral condyle. Complete disruption of ACL. Grade I chondromalacia lateral compartment. Intact lateral meniscus. Grade 1-2 chondral malacia the patellofemoral compartment OPERATION: Arthroscopic partial left medial meniscectomy and abrasion chondro plasty medial femoral condyle SURGEON: FELISA HINDS ANESTHESIA: LMAC ESTIMATED BLOOD LOSS: Minimal PROCEDURE: With the patient supine on the operating table the left lower extremities prepped and draped in sterile fashion. Its insufflated with accommodation Marcaine, Xylocaine, and epinephrine through medial lateral patella portals. Medial lateral infrapatellar portals were then created for the introduction of arthroscope and debridement instrumentation. Joint is examined in systematic fashion findings as above. Using a basket rongeur followed by mechanical shaver and an electric electro frequency ablation probe a partial medial meniscectomy was performed from proximal at 9:00 to 12:00 in the face of the dial. The chondral injury to the medial femoral condyle was then debrided using mechanical shaver. Microfracture awls were used to make punctate openings in the subchondral bone to allow subchondral bleeding. The joint is again examined in systematic fashion with no new findings. Instrumentation was removed. Portals reapproximated interrupted nylon. A sterile compressive dressing was applied. The patient's return to the PACU in satisfactory condition.
[2018-10-11] MEDS ORDERED: OXYCODONE-ACETAMINOPHEN 5-325 MG TABLET ONE (08:53)
[2018-10-11 10:20] VITALS: BP 152/78
== END 2018-10-11 10:10 | disposition home or self-care (01) ==
LOC: OROUT 05:35
PROVIDERS: ATTEND Orthopaedic Surgery
DX: M23.204 Derangement of unspecified medial meniscus due to old tear or injury, left knee (principal); M22.42 Chondromalacia patellae, left knee; I10 Essential (primary) hypertension; M06.9 Rheumatoid arthritis, unspecified; Z88.6 Allergy status to analgesic agent; Z87.891 Personal history of nicotine dependence
CPT/HCPCS: 29881; 93005; 36415 ×2; 84132; 85027; 80048; 81001; 71046; 93010; J2250; J3490 ×2; J3010; J2405; J2704; J0690; J0131; 1400

== ENCOUNTER → 2018-11-29 | Outpatient (CLI) | payer BC, OTHER | LOC: OD 15:39 | PROVIDERS: ATTEND Otolaryngology | DX: J30.9 Allergic rhinitis, unspecified (principal) | CPT/HCPCS: 36415; 82785; 86003 ==

== ENCOUNTER → 2019-01-27 | Outpatient (CLI) | payer BC ==
--- NOTE | 2019-01-27 08:47 | RADIOLOGY REPORT (SQ) ---
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 MR dated 08/13/2016. TECHNIQUE: Multiplanar imaging includes non-contrasted T1, T2, FLAIR, diffusion with ADC map and pos t gadolinium contrast sequences. Additional thin slice images with and without gadolinium contrast a cquired in the posterior fossa. Images stored on PACS. CONTRAST TYPE AND DOSE: 15 mL Dotarem. RENAL FUNCTION: Not indicated. ACR Type II contrast agent associated with few, if any, unconfounded cases of NSF LIMITATIONS: None. FINDINGS: ANATOMY: No anomalies. Normal vascular flow voids. Pituitary fossa normal. CSF SPACES: Normal in size and contour. CEREBRUM: Sulci and gyri normal in size and contour. Normal white matter signal on FLAIR imaging. N o hemorrhage. No edema, masses or mass effect. No enhancing lesions. POSTERIOR FOSSA: No signal alteration. No hemorrhage. No edema, masses or mass effect. Internal liev tory canals, cerebello-pontine angles, mastoids normal. No enhancing lesions. Detailed imaging of the 5th, 7th, and 8th nerves and [place] within normal limits. DIFFUSION IMAGING: Negative for acute or sub-acute infarction. ORBITS: No masses. Globes normal. PARANASAL SINUSES: No fluid levels. Mucosa normal. OTHER: No other significant finding. IMPRESSION: NORMAL MRI OF THE BRAIN AND POSTERIOR FOSSA WITHOUT AND WITH INTRAVENOUS GADOLINIUM CONT RAST. TECHNICAL DOCUMENTATION: JOB ID: [id number] [employer]- All Rights Reserved Reading location - IP/workstation name: [email or web address]
== END ==
LOC: RAD 06:48
PROVIDERS: ATTEND Otolaryngology
DX: H90.6 Mixed conductive and sensorineural hearing loss, bilateral (principal)
CPT/HCPCS: 82565; 70553; A9576

== ENCOUNTER → 2019-09-27 | Outpatient (CLI) | payer BC ==
[2019-09-27 12:35] LABS: ABSOLUTE EOSINOPHILS # (AUTO) 0.1 10^3/uL (0.0-0.6); ABSOLUTE LYMPHOCYTES (AUTO) 0.9 10^3/uL (0.5-4.7); ABSOLUTE MONOCYTES (AUTO) 0.8 10^3/uL (0.1-1.4); ABSOLUTE NEUT (AUTO) 3.7 10^3/uL (1.7-8.2); BASOPHILS % (AUTO) 0.7 % (0-2); EOSINOPHILS % (AUTO) 0.9 % (0-6); HEMATOCRIT 36.6 % (36.0-47.0); HEMOGLOBIN 12.8 g/dL (12.0-15.5); LYMPHOCYTES % (AUTO) 16.9 % (13-45); MEAN CORPUSCULAR HEMOGLOBIN 30.7 pg (27.0-33.4); MEAN CORPUSCULAR HGB CONC 34.9 g/dL (32.0-36.0); MEAN CORPUSCULAR VOLUME 88 fl (80-97); MONOCYTES % (AUTO) 13.9 % (3-13); PLATELET COUNT 244 10^3/uL (150-450); RED BLOOD COUNT 4.16 10^6/uL (3.72-5.28); SEGMENTED NEUTROPHILS % (AUTO) 67.6 % (42-78); TOTAL CELLS COUNTED % (AUTO) 100 %; WHITE BLOOD COUNT 5.5 10^3/uL (4.0-10.5)
[2019-09-27 12:36] LABS: APPEARANCE,URINE CLEAR; BILIRUBIN,URINE NEGATIVE (NEGATIVE); COLOR,URINE STRAW; GLUCOSE, URINE NEGATIVE (NEGATIVE); KETONES,URINE NEGATIVE (NEGATIVE); LEUKOCYTE ESTERASE,URINE NEGATIVE (NEGATIVE); NITRITE,URINE NEGATIVE (NEGATIVE); PROTEIN,URINE NEGATIVE (NEGATIVE); URINE SPECIFIC GRAVITY 1.011; UROBILINOGEN,URINE NEGATIVE mg/dL (<2.0)
[2019-09-27 12:56] LABS: ALBUMIN 4.5 g/dL (3.5-5.0); ALKALINE PHOSPHATASE 94 U/L (38-126); ANION GAP 11 (5-19); ASPARTATE AMINO TRANSFERASE 28 U/L (14-36); BILIRUBIN,DIRECT 0.3 mg/dL (0.0-0.4); BILIRUBIN,TOTAL 0.7 mg/dL (0.2-1.3); BLOOD UREA NITROGEN 17 mg/dL (7-20); CALCIUM 9.7 mg/dL (8.4-10.2); CARBON DIOXIDE 25 mmol/L (22-30); CHLORIDE 104 mmol/L (98-107); GLUCOSE 104 mg/dL (75-110); IRON(TIBC) 86.6 ug/dL (37-170); TOTAL PROTEIN 7.8 g/dL (6.3-8.2); URIC ACID 5.1 mg/dL (2.5-7.5)
[2019-09-27 13:15] LABS: FREE T4 (FREE THYROXINE) 0.9 ng/dL (0.78-2.19)
[2019-09-27 13:29] LABS: THYROID STIMULATING HORMONE 2.84 uIU/mL (0.47-4.68)
== END ==
LOC: OD 11:41
PROVIDERS: ATTEND Internal Medicine
DX: I10 Essential (primary) hypertension (principal); R53.83 Other fatigue
CPT/HCPCS: 36415; 80053; 81001; 82728; 83540; 83550; 84439; 84443; 84550; 85025

== ENCOUNTER 2019-09-28 10:17 | Observation (INO) | payer BC ==
--- NOTE | 2019-09-28 11:01 | ER Document Report ---
ED Medical Screen (RME) - General Chief Complaint: Chest Pain Stated Complaint: CHEST PAIN Time Seen by Provider: 09/28/19 10:57 Primary Care Provider: JOSE F EASON MD [Primary Care Provider] - Follow up as needed Mode of Arrival: Wheelchair Information source: Patient Notes: 58-year-old female presents to ED for complaint of chest pain radiating down the right arm sweats for a while now and heart racing. She went to Dr. Eason's office yesterday and today today he sent her to the emergency room. states the chest pain is been for a long time patient states is been since last Thursday. She states the pain is much worse since last Thursday he has been constantly fatigued since last Thursday. He states all of her blood work that they did at the office was good yesterday. We will do the chest pain protocol she has had a EKG we will complete the work-up she did have aspirin at Dr. Eason's office for baby aspirin which she chewed. Dizzy lightheaded since last week. 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 I have greeted and performed a rapid initial assessment of this patient. A comprehensive ED assessment and evaluation of the patient, analysis of test results and completion of medical decision making process will be conducted by an additional ED providers. TRAVEL OUTSIDE OF THE [place] IN LAST 30 DAYS: No - Related Data Allergies/Adverse Reactions: banana Allergy (Verified 09/28/19 10:57) Rash ibuprofen [From Motrin] Allergy (Verified 09/28/19 10:57) Rash Past Medical History - Past Medical History Cardiac Medical History: Reports: Hx Hypertension Denies: Hx Coronary Artery Disease, Hx Heart Attack Pulmonary Medical History: Denies: Hx Asthma, Hx Bronchitis, Hx COPD, Hx Pneumonia Neurological Medical History: Reports: Hx Migraine. Denies: Hx Cerebrovascular Accident, Hx Seizures Renal/ Medical History: Denies: Hx Peritoneal Dialysis Musculoskeltal Medical History: Reports Hx Arthritis - Generalized, RA - Immunizations Hx Diphtheria, Pertussis, Tetanus Vaccination: Yes Doctor's Discharge - Discharge Referrals: JOSE F EASON MD [Primary Care Provider] - Follow up as needed
[2019-09-28 12:00] LABS: ABSOLUTE BASOPHILS # (AUTO) 0.1 10^3/uL (0.0-0.2); ABSOLUTE LYMPHOCYTES (AUTO) 1.3 10^3/uL (0.5-4.7); ABSOLUTE MONOCYTES (AUTO) 1.1 10^3/uL (0.1-1.4); ABSOLUTE NEUT (AUTO) 5.2 10^3/uL (1.7-8.2); BASOPHILS % (AUTO) 0.7 % (0-2); EOSINOPHILS % (AUTO) 0.3 % (0-6); HEMATOCRIT 38.6 % (36.0-47.0); HEMOGLOBIN 13.7 g/dL (12.0-15.5); LYMPHOCYTES % (AUTO) 17.3 % (13-45); MEAN CORPUSCULAR HGB CONC 35.4 g/dL (32.0-36.0); MEAN CORPUSCULAR VOLUME 88 fl (80-97); PLATELET COUNT 297 10^3/uL (150-450); RED CELL DISTRIBUTION WIDTH 13.5 % (11.5-14.0); SEGMENTED NEUTROPHILS % (AUTO) 67.7 % (42-78); TOTAL CELLS COUNTED % (AUTO) 100 %; WHITE BLOOD COUNT 7.7 10^3/uL (4.0-10.5)
[2019-09-28 12:25] LABS: ALBUMIN 4.9 g/dL (3.5-5.0); ALKALINE PHOSPHATASE 108 U/L (38-126); ANION GAP 11 (5-19); ASPARTATE AMINO TRANSFERASE 31 U/L (14-36); BILIRUBIN,TOTAL 0.8 mg/dL (0.2-1.3); BLOOD UREA NITROGEN 15 mg/dL (7-20); CALCIUM 10.4 mg/dL (8.4-10.2); CARBON DIOXIDE 24 mmol/L (22-30); CHLORIDE 105 mmol/L (98-107); GLUCOSE 119 mg/dL (75-110); POTASSIUM 4.5 mmol/L (3.6-5.0)
--- NOTE | 2019-09-28 12:25 | RADIOLOGY REPORT (SQ) ---
EXAM DESCRIPTION: CHEST 2 VIEWS COMPLETED DATE/TIME: 09/28/2019 12:14 pm REASON FOR STUDY: Chest pain COMPARISON: PA and lateral views of the chest from 10/08/2018 EXAM PARAMETERS: NUMBER OF VIEWS: Two views. TECHNIQUE: PA and lateral views of the chest were obtained.. RADIATION DOSE: NA LIMITATIONS: none FINDINGS: LUNGS AND PLEURA: No consolidation, pleural effusion or pneumothorax. MEDIASTINUM AND HILAR STRUCTURES: No mediastinal or hilar contour abnormality. HEART AND VASCULAR STRUCTURES: The cardiac silhouette and pulmonary vasculature are within normal turner its. BONES: No acute findings. HARDWARE: Cholecystectomy clips. OTHER: No other finding. IMPRESSION: No acute cardiopulmonary process. TECHNICAL DOCUMENTATION: JOB ID: [id number] [email or web address]- All Rights Reserved Reading location - IP/workstation name: [email or web address]
[2019-09-28] MEDS ORDERED: LORAZEPAM INJ 2 MG/1 ML VIAL IV ONE (13:43)
--- NOTE | 2019-09-28 15:04 | RADIOLOGY REPORT (SQ) ---
EXAM DESCRIPTION: CTA CHEST COMPLETED DATE/TIME: 09/28/2019 2:40 pm REASON FOR STUDY: cp/sob COMPARISON: CT of the chest with contrast from 05/08/2019. TECHNIQUE: CT scan of the chest performed using helical scanning technique with dynamic intravenous contrast injection. Images reviewed with lung, soft tissue and bone windows. Reconstructed coronal and sagittal MPR images reviewed. Additional 3 dimensional post-processing performed to develop Maximal Intensity Projection images (MA P). All images stored on PACS. All CT scanners at this facility use dose modulation, iterative reconstruction, and/or weight based d osing when appropriate to reduce radiation dose to as low as reasonably achievable (ALARA). [facility]: Dose Right [facility]: CareDose [facility]: Dose Right [facility]: Teradose 4D [facility]: [place] CONTRAST TYPE AND DOSE: Contrast/concentration: Isovue 350.00 mg/ml; Total Contrast Delivered: 65.0 ml; Total Saline Delivered: 72.0 ml Contrast bolus optimized for the pulmonary arteries. RENAL FUNCTION: GFR > 60. RADIATION DOSE: CT Rad equipment meets quality standard of care and radiation dose reduction techniq ues were employed. CTDIvol: 13.2 - 18.1 mGy. DLP: 676 mGy-cm. LIMITATIONS: Evaluation is limited due to low inspiratory lung volumes. FINDINGS: LUNGS AND PLEURA: Mosaic attenuation pattern of the lung parenchyma. The the trachea main bronchi are patent. There is no bronchiectasis or segmental mucus plugging. There is no pleural ef fusion, consolidation or pneumothorax. AORTA AND GREAT VESSELS: No thoracic aortic aneurysm or dissection HEART: No cardiomegaly or pericardial effusion. PULMONARY ARTERIES: No central or segmental pulmonary embolus. Evaluation of the subsegmental branch es of the pulmonary arteries is limited due to respiratory motion. HILAR AND MEDIASTINAL STRUCTURES: Borderline enlarged right upper peritracheal, right lower peritrach eal and hilar lymph nodes that measure up to 10 mm in short axis diameter. HARDWARE: None in the chest. UPPER ABDOMEN: The gallbladder is surgically absent. THYROID AND OTHER SOFT TISSUES: No masses or adenopathy. BONES: No acute findings. 3D MIPS: Confirm above findings. OTHER: No other finding. IMPRESSION: 1. Nonspecific mosaic attenuation pattern of the lung parenchyma. In the setting of thi ckening of the bronchial merrill clinical correlation to exclude an underlying small airways disease is recommended. 2. No central or segmental pulmonary embolus. Evaluation of the subsegmental branches of the pulmon lauren arteries is limited due to respiratory motion. COMMENT: Quality ID # [id number]: Final reports with documentation of one or more dose reduction techniques (e.g., Automated exposure control, adjustment of the mA and/or kV according to patient size, use of iterative reconstruction technique) TECHNICAL DOCUMENTATION: JOB ID: [id number] [employer]- All Rights Reserved Reading location - IP/workstation name: [email or web address]
--- NOTE | 2019-09-28 15:09 | ER Document Report ---
ED Cardiac - General Chief Complaint: Chest Pain Stated Complaint: CHEST PAIN Time Seen by Provider: 09/28/19 10:57 Primary Care Provider: JOSE F EASON MD [Primary Care Provider] - Follow up as needed Mode of Arrival: Wheelchair Information source: Patient TRAVEL OUTSIDE OF THE [place] IN LAST 30 DAYS: No - HPI Notes: Patient states for the last week she has been having chest pain right arm tingling shortness of breath and anxiety that is intermittent. She does not know anything that makes it better or worse. There is no significant radiation of the chest pain. It is been moderate. She has been anxious over financial situations in her life recently. She denies being a smoker. No hormones. No history of DVTs or PEs. She had a normal cardiac stress test "several years ago". She has not had significant sweating. No nausea or vomiting. No cough cold congestion. No previous history of coronary artery disease. The pain is been an aching and a pressure sensation. - Related Data Allergies/Adverse Reactions: banana Allergy (Verified 09/28/19 10:57) Rash ibuprofen [From Motrin] Allergy (Verified 09/28/19 10:57) Rash Past Medical History - General Information source: Patient - Social History Smoking Status: Former Smoker Frequency of alcohol use: None Drug Abuse: None Family History: Reviewed & Not Pertinent Patient has suicidal ideation: No Patient has homicidal ideation: No - Past Medical History Cardiac Medical History: Reports: Hx Hypertension Denies: Hx Coronary Artery Disease, Hx Heart Attack Pulmonary Medical History: Denies: Hx Asthma, Hx Bronchitis, Hx COPD, Hx Pneumonia Neurological Medical History: Reports: Hx Migraine. Denies: Hx Cerebrovascular Accident, Hx Seizures Renal/ Medical History: Denies: Hx Peritoneal Dialysis Musculoskeletal Medical History: Reports Hx Arthritis - Generalized, RA Past Surgical History: Reports: Hx Section, Hx Cholecystectomy, Hx Hysterectomy, Hx Orthopedic Surgery - Immunizations Hx Diphtheria, Pertussis, Tetanus Vaccination: Yes Review of Systems - Review of Systems Constitutional: Malaise, Weakness. denies: Chills, Fever Cardiovascular: Chest pain, Dyspnea Respiratory: Short of breath. denies: Cough -: Yes All other systems reviewed and negative Physical Exam - Vital signs Vitals: Temp Pulse Resp BP Pulse Ox 98.4 F 87 20 147/75 H 99 09/28/19 10:38 09/28/19 10:38 09/28/19 10:38 09/28/19 10:38 09/28/19 10:38 Interpretation: Normal - General General appearance: Appears well, Alert - HEENT Head: Normocephalic, Atraumatic Eyes: Normal Pupils: PERRL - Respiratory Respiratory status: No respiratory distress Chest status: Nontender Breath sounds: Normal Chest palpation: Normal - Cardiovascular Rhythm: Regular Heart sounds: Normal auscultation Murmur: No - Abdominal Inspection: Normal Distension: No distension Bowel sounds: Normal Tenderness: Nontender Organomegaly: No organomegaly - Back Back: Normal, Nontender - Extremities General upper extremity: Normal inspection, Nontender, Normal color, Normal ROM, Normal temperature General lower extremity: Normal inspection, Nontender, Normal color, Normal ROM, Normal temperature, Normal weight bearing. No: Alex's sign - Neurological Neuro grossly intact: Yes Cognition: Normal Orientation: AAOx4 [place] Coma Scale Eye Opening: Spontaneous [place] Coma Scale Verbal: Oriented [place] Coma Scale Motor: Obeys Commands Selam Coma Scale Total: 15 Speech: Normal Motor strength normal: LUE, RUE, LLE, RLE Sensory: Normal - Psychological Associated symptoms: Agitated, Anxious - Skin Skin Temperature: Warm Skin Moisture: Dry Skin Color: Normal Course - Re-evaluation Re-evalutation: 09/28/19 15:57 Patient presents with chest pain right arm pain and shortness of breath that is been ongoing for the last week. She has not had any significant infectious symptoms. There is no evidence of PE. CT shows a questionable infectious process however patient has had no infectious symptoms. She has a heart score of 4. Patient does seem to have a large component of anxiety. However patient and deny that she has ever had anxiety in the past. It seems most prudent to admit the patient for serial enzymes and further evaluation of coronary artery disease. She does have some nonspecific changes on the EKG. - Vital Signs Vital signs: Temp Pulse Resp BP Pulse Ox 98.4 F 87 17 131/91 H 97 09/28/19 10:38 09/28/19 10:38 09/28/19 15:30 09/28/19 15:02 09/28/19 15:30 - Laboratory Result Diagrams: 09/28/19 11:25 09/28/19 11:25 Laboratory results interpreted by me: 09/28/19 09/28/19 11:25 11:25 Parker % (Auto) 14.0 H Glucose 119 H Calcium 10.4 H - Diagnostic Test Radiology reviewed: Image reviewed, Reports reviewed - EKG Interpretation by Me EKG shows normal: Sinus rhythm Rate: Normal - 99 Rhythm: NSR [place]/QRS: No: RBBB, LBBB Discharge - Discharge Clinical Impression: Chest pain Qualifiers: Chest pain type: unspecified Qualified Code(s): R07.9 - Chest pain, unspecified Condition: Stable Disposition: ADMITTED INPATIENT Admitting Provider: Derrek (Hospitalist) Unit Admitted: Telemetry Referrals: JOSE F EASON MD [Primary Care Provider] - Follow up as needed
--- NOTE | 2019-09-28 17:53 | PDOC H&P ---
History of Present Illness Admission Date/PCP: 09/28/19 16:58 JOSE F EASON MD History of Present Illness: JACINTO BRISENO is a 58 year old female, She has a history of rheumatoid arth ritis, she is on disease modifying anti-rheumatoid medication including monoclonal anti-alpha TNF, she came to the office this morning for evaluation of chest tightness though the chest tightness is not provoked by activity or emotional outburst that would suggest typical angina. A 12-lead EKG was done in the office, it was sinus rhythm there was very subtle changes in the lateral leads, because she has a history of chronic inflammatory condition, rheumatoid arthritis, which is considered a risk factor for ischemic heart disease I advised her to go to the ER for further evaluation. She also had in the office, sinus tachycardia. In the emergency room she underwent CT angiogram of the chest, this was negative for any acute pulmonary embolism, the ER physician felt patient needed to be admitted for further evaluation into the hospital Past Medical History Cardiac Medical History: Reports: Hypertension Denies: Coronary Artery Disease, Myocardial Infarction Pulmonary Medical History: Denies: Asthma, Bronchitis, Chronic Obstructive Pulmonary Disease (COPD), Pneumonia Neurological Medical History: Reports: Migraine Denies: Seizures Musculoskeltal Medical History: Reports: Arthritis - Generalized, RA Hematology: Reports: Anemia - Hx of, unsure if currently Past Surgical History Past Surgical History: Reports: Section, Cholecystectomy, Hysterectomy, Orthopedic Surgery Social History Smoking Status: Former Smoker Frequency of Alcohol Use: None Hx Recreational Drug Use: No Drugs: None Hx Prescription Drug Abuse: No Family History Family History: Reviewed & Not Pertinent Parental Family History Reviewed: Yes Children Family History Reviewed: Yes Sibling(s) Family History Reviewed.: Yes Medication/Allergy Home Medications: Desloratadine 5 mg PO DAILY 09/28/19 Etanercept [Enbrel] 50 mg SQ TH@99909/28/19 Fluticasone Propionate [Flonase Nasal [place] 50 Mcg/[place] 16 gm] 1 spray NASL DA OSMAR 09/28/19 Methotrexate Sodium [Rheumatrex 2.5 mg Tablet] 20 mg PO SA@99909/28/19 Olmesartan/Amlodipin/Hcthiazid [Mzynwxa-Tljptu-Elxg 40-10-12.5] 1 each PO DAILY 09/28/19 Oxymetazoline HCl [Afrin 0.05% Nasal [place] 15 ml Bottle] 1 spray NASL ASDIR PRN 09/28/19 Buspirone HCl [Buspar 10 mg Tablet] 10 mg PO BID #60 tablet 09/29/19 Allergies/Adverse Reactions: banana Allergy (Verified 09/28/19 10:57) Rash ibuprofen [From Motrin] Allergy (Verified 09/28/19 10:57) Rash Review of Systems Constitutional: ABSENT: chills, fever(s), headache(s), weight gain, weight loss Eyes: ABSENT: visual disturbances Ears: ABSENT: hearing changes Cardiovascular: PRESENT: chest pain. ABSENT: dyspnea on exertion, edema, orthropnea, palpitations Respiratory: ABSENT: cough, hemoptysis Gastrointestinal: ABSENT: abdominal pain, constipation, diarrhea, hematemesis, hematochezia, nausea, vomiting Genitourinary: ABSENT: dysuria, hematuria Musculoskeletal: ABSENT: joint swelling Integumentary: ABSENT: rash, wounds Neurological: ABSENT: abnormal gait, abnormal speech, confusion, dizziness, focal weakness, syncope Psychiatric: ABSENT: anxiety, depression, homidical ideation, suicidal ideation Endocrine: ABSENT: cold intolerance, heat intolerance, menstrual abnormalities, polydipsia, polyuria Hematologic/Lymphatic: ABSENT: easy bleeding, easy bruising, lymphadenopathy Physical Exam Vital Signs: Temp Pulse Resp BP Pulse Ox 98.4 F 87 17 131/91 H 97 09/28/19 10:38 09/28/19 10:38 09/28/19 15:30 09/28/19 15:02 09/28/19 15:30 Intake & Output 09/27/19 09/28/19 09/29/19 06:59 06:59 06:59 Weight 89 kg General appearance: PRESENT: no acute distress Eye exam: PRESENT: PERRLA Respiratory exam: PRESENT: clear to auscultation guillermo Cardiovascular exam: PRESENT: +S1, +S2 GI/Abdominal exam: PRESENT: soft Neurological exam: PRESENT: alert, CN II-XII grossly intact Results Laboratory Results: 09/28/19 11:25 09/28/19 11:25 09/28/19 09/28/19 11:25 11:25 WBC 7.7 RBC 4.40 Hgb 13.7 Hct 38.6 MCV 88 MCH 31.0 MCHC 35.4 RDW 13.5 Plt Count 297 Seg Neutrophils % 67.7 Sodium 139.6 Potassium 4.5 Chloride 105 Carbon Dioxide 24 Anion Gap 11 BUN 15 Creatinine 0.74 Est GFR ( Amer) > 60 Glucose 119 H Calcium 10.4 H Total Bilirubin 0.8 AST 31 Alkaline Phosphatase 108 Total Protein 8.0 Albumin 4.9 09/28/19 11:25 Troponin I < 0.012 Impressions: Chest X-Ray 09/28/19 11:01 IMPRESSION: No acute cardiopulmonary process. Chest/Abdomen CTA 09/28/19 13:43 IMPRESSION: 1. Nonspecific mosaic attenuation pattern of the lung parenchyma. In the setting of thickening of the bronchial merrill clinical correlation to exclude an underlying small airways disease is recommended. 2. No central or segmental pulmonary embolus. Evaluation of the subsegmental branches of the pulmonary arteries is limited due to respiratory motion. Assessment & Plan - Diagnosis (1) Chest pain Qualifiers: Chest pain type: unspecified Qualified Code(s): R07.9 - Chest pain, unspecified Is this a current diagnosis for this admission?: Yes Plan: She has chest pain she is admitted to rule out ischemic heart disease (2) Anxiety Is this a current diagnosis for this admission?: Yes
[2019-09-28] MEDS: ASPIRIN 81 MG TABLET, ENT COATED PO SCH (18:00)
--- NOTE | 2019-09-28 18:35 | EKG REPORT ---
SEVERITY:- ABNORMAL ECG - SINUS TACHYCARDIA ATRIAL PREMATURE COMPLEX : Confirmed by: Dorothea Valdes MD 28-Sep-2019 18:34:53
[2019-09-28] MEDS ORDERED: HYDROCHLOROTHIAZIDE PO SCH (18:45)
[2019-09-28] MEDS ORDERED: AMLODIPINE PO SCH (18:45)
[2019-09-28] MEDS ORDERED: DESLORATADINE 5 MG PO SCH (18:45)
[2019-09-28] MEDS ORDERED: [UNRECOGNIZED DRUG - OTHER] PO SCH (18:45)
[2019-09-28] MEDS ORDERED: OLMESARTAN PO SCH (18:45)
[2019-09-28 19:25] LABS: ABSOLUTE LYMPHOCYTES (AUTO) 1.5 10^3/uL (0.5-4.7); ABSOLUTE MONOCYTES (AUTO) 1.2 10^3/uL (0.1-1.4); ABSOLUTE NEUT (AUTO) 3.2 10^3/uL (1.7-8.2); BASOPHILS % (AUTO) 0.5 % (0-2); EOSINOPHILS % (AUTO) 0.5 % (0-6); HEMATOCRIT 37.4 % (36.0-47.0); HEMOGLOBIN 13.1 g/dL (12.0-15.5); INTERNATIONAL RATION (INR) 1.02; LYMPHOCYTES % (AUTO) 25.1 % (13-45); MEAN CORPUSCULAR HEMOGLOBIN 30.8 pg (27.0-33.4); MEAN CORPUSCULAR HGB CONC 34.9 g/dL (32.0-36.0); MEAN CORPUSCULAR VOLUME 88 fl (80-97); MONOCYTES % (AUTO) 19.4 % (3-13); PLATELET COUNT 279 10^3/uL (150-450); PROTHROMBIN TIME 13.4 SEC (11.4-15.4); RED BLOOD COUNT 4.24 10^6/uL (3.72-5.28); RED CELL DISTRIBUTION WIDTH 13.6 % (11.5-14.0); SEGMENTED NEUTROPHILS % (AUTO) 54.5 % (42-78); TOTAL CELLS COUNTED % (AUTO) 100 %
[2019-09-28 19:26] LABS: PARTIAL THROMBOPLASTIN TIME 27.2 SEC (23.5-35.8)
[2019-09-28 19:39] LABS: ANION GAP 12 (5-19); BLOOD UREA NITROGEN 16 mg/dL (7-20); CALCIUM 9.8 mg/dL (8.4-10.2); CARBON DIOXIDE 24 mmol/L (22-30); CHLORIDE 103 mmol/L (98-107); CREATINE KINASE 43 U/L (30-135); GLUCOSE 131 mg/dL (75-110); PHOSPHORUS 4.3 mg/dL (2.5-4.5); POTASSIUM 3.8 mmol/L (3.6-5.0)
[2019-09-28] MEDS: ONDANSETRON 4 MG TAB.RAPDIS PO PRN (22:35)
[2019-09-29] MEDS ORDERED: ACETAMINOPHEN 325 MG TABLET PO PRN (06:35)
[2019-09-29] MEDS: ONDANSETRON 4 MG TAB.RAPDIS PO PRN (06:49)
[2019-09-29 09:10] LABS: APPEARANCE,URINE CLEAR; BILIRUBIN,URINE NEGATIVE (NEGATIVE); COLOR,URINE YELLOW; GLUCOSE, URINE NEGATIVE (NEGATIVE); KETONES,URINE 20 mg/dL (NEGATIVE); LEUKOCYTE ESTERASE,URINE NEGATIVE (NEGATIVE); NITRITE,URINE NEGATIVE (NEGATIVE); PROTEIN,URINE NEGATIVE (NEGATIVE); URINE SPECIFIC GRAVITY 1.014; UROBILINOGEN,URINE NEGATIVE mg/dL (<2.0)
[2019-09-29] MEDS ORDERED: LOSARTAN POTASSIUM 50 MG TABLET PO SCH (10:00)
[2019-09-29] MEDS ORDERED: AMLODIPINE BESYLATE 10 MG TABLET PO SCH (10:00)
[2019-09-29] MEDS ORDERED: LORATADINE 10 MG TABLET PO SCH (10:00)
[2019-09-29] MEDS ORDERED: BUSPIRONE HCL 10 MG TABLET PO SCH (10:00)
[2019-09-29] MEDS ORDERED: OLMESARTAN PO SCH (10:00)
[2019-09-29] MEDS ORDERED: HYDROCHLOROTHIAZIDE 12.5 MG TABLET PO SCH (10:00)
[2019-09-29] MEDS ORDERED: HYDROCHLOROTHIAZIDE PO SCH (10:00)
[2019-09-29] MEDS ORDERED: AMLODIPINE PO SCH (10:00)
[2019-09-29] MEDS ORDERED: FLUTICASONE NASAL SPRAY 50 MCG/SPRY 120 SPRAY/16 GM NASL SCH (10:00)
[2019-09-29] MEDS ORDERED: [UNRECOGNIZED DRUG - OTHER] PO SCH (10:00)
[2019-09-29] MEDS: ASPIRIN 81 MG TABLET, ENT COATED PO SCH (11:14)
[2019-09-29] MEDS ORDERED: DIPHENHYDRAMINE HCL 25 MG CAPSULE PO PRN (13:00)
[2019-09-29] MEDS ORDERED: REGADENOSON INJ 0.4 MG/5 ML DISP.SYRIN IV ONE (14:22)
[2019-09-29 17:48] VITALS: BP 136/73
--- NOTE | 2019-09-29 20:19 | PDOC DISCHARGE SUMMARY ---
Impression - Admit/DC Date/PCP Admission Date/Primary Care Provider: 09/28/19 16:58 JOSE F EASON MD Discharge Date: 09/29/19 - Discharge Diagnosis (1) Chest wall pain Is this a current diagnosis for this admission?: Yes (2) Anxiety Is this a current diagnosis for this admission?: Yes (3) Rheumatoid arthritis Is this a current diagnosis for this admission?: Yes - Additional Information Resuscitation Status: Full Code Discharge Diet: Regular Discharge Activity: Activity As Tolerated Referrals: JOSE F EASON MD [Primary Care Provider] - Follow up as needed Prescriptions: RX: Buspirone HCl [Buspar 10 mg Tablet] 10 mg PO BID #60 tablet Home Medications: RX: Desloratadine 5 mg PO DAILY 09/28/19 RX: Etanercept [Enbrel] 50 mg SQ TH@1000 09/28/19 RX: Fluticasone Propionate [Flonase Nasal [place] 50 Mcg/[place] 16 gm] 1 spray NASL DAILY 09/28/19 RX: Methotrexate Sodium [Rheumatrex 2.5 mg Tablet] 20 mg PO SA@1000 09/28/19 RX: Olmesartan/Amlodipin/Hcthiazid [Stfvavs-Jfzuze-Ltly 40-10-12.5] 1 each PO DAILY 09/28/19 RX: Oxymetazoline HCl [Afrin 0.05% Nasal [place] 15 ml Bottle] 1 spray NASL ASDIR PRN 09/28/19 RX: Buspirone HCl [Buspar 10 mg Tablet] 10 mg PO BID #60 tablet 09/29/19 History of Present Illiness History of Present Illness: JACINTO BRISENO is a 58 year old female, She has a history of rheumatoid arthritis, she is on disease modifying anti-rheumatoid medication including monoclonal anti-alpha TNF, she came to the office this morning for evaluation of chest tightness though the chest tightness is not provoked by activity or emotional outburst that would suggest typical angina. A 12-lead EKG was done in the office, it was sinus rhythm there was very subtle changes in the lateral leads, because she has a history of chronic inflammatory condition, rheumatoid arthritis, which is considered a risk factor for ischemic heart disease I advised her to go to the ER for further evaluation. She also had in the office, sinus tachycardia. In the emergency room she underwent CT angiogram of the chest, this was negative for any acute pulmonary embolism, the ER physician felt patient needed to be admitted for further evaluation into the hospital Hospital Course Hospital Course: Patient was admitted for evaluation and management of chest pain. The chest pain is atypical in presentation, she underwent Cardiolite Lexiscan stress test, this was negative for any acute reversibility. 3 sets of cardiac enzymes negative for acute MT.Patient was very anxious, she has severe anxiety requiring buspirone Physical Exam Vital Signs: Temp Pulse Resp BP Pulse Ox 97.9 F 78 16 136/73 H 100 09/29/19 17:47 09/29/19 17:47 09/29/19 17:47 09/29/19 17:47 09/29/19 17:47 Intake & Output 09/28/19 09/29/19 09/30/19 06:59 06:59 06:59 Intake Total 960 Output Total 600 Balance -600 960 Weight 88.5 kg 88.5 kg General appearance: PRESENT: no acute distress Eye exam: PRESENT: PERRLA Respiratory exam: PRESENT: clear to auscultation guillermo Cardiovascular exam: PRESENT: +S1, +S2 GI/Abdominal exam: PRESENT: soft Neurological exam: PRESENT: alert Results Laboratory Results: WBC 6.0 10^3/uL (4.0-10.5) 09/28/19 18:46 RBC 4.24 10^6/uL (3.72-5.28) 09/28/19 18:46 Hgb 13.1 g/dL (12.0-15.5) 09/28/19 18:46 Hct 37.4 % (36.0-47.0) 09/28/19 18:46 MCV 88 fl (80-97) 09/28/19 18:46 MCH 30.8 pg (27.0-33.4) 09/28/19 18:46 MCHC 34.9 g/dL (32.0-36.0) 09/28/19 18:46 RDW 13.6 % (11.5-14.0) 09/28/19 18:46 Plt Count 279 10^3/uL (150-450) 09/28/19 18:46 Lymph % (Auto) 25.1 % (13-45) 09/28/19 18:46 [place]rio % (Auto) 19.4 % (3-13) H 09/28/19 18:46 Eos % (Auto) 0.5 % (0-6) 09/28/19 18:46 Baso % (Auto) 0.5 % (0-2) 09/28/19 18:46 Absolute Neuts (auto) 3.2 10^3/uL (1.7-8.2) 09/28/19 18:46 Absolute Lymphs (auto) 1.5 10^3/uL (0.5-4.7) 09/28/19 18:46 Absolute Monos (auto) 1.2 10^3/uL (0.1-1.4) 09/28/19 18:46 Absolute Eos (auto) 0.0 10^3/uL (0.0-0.6) 09/28/19 18:46 Absolute Basos (auto) 0.0 10^3/uL (0.0-0.2) 09/28/19 18:46 Seg Neutrophils % 54.5 % (42-78) 09/28/19 18:46 PT 13.4 SEC (11.4-15.4) 09/28/19 18:46 INR 1.02 09/28/19 18:46 APTT 27.2 SEC (23.5-35.8) 09/28/19 18:46 Sodium 139.0 mmol/L (137-145) 09/28/19 18:46 Potassium 3.8 mmol/L (3.6-5.0) 09/28/19 18:46 Chloride 103 mmol/L (98-107) 09/28/19 18:46 Carbon Dioxide 24 mmol/L (22-30) 09/28/19 18:46 Anion Gap 12 (5-19) 09/28/19 18:46 BUN 16 mg/dL (7-20) 09/28/19 18:46 Creatinine 0.70 mg/dL (0.52-1.25) 09/28/19 18:46 Est GFR ( Amer) > 60 (>60) 09/28/19 18:46 Est GFR (MDRD) Non-Af > 60 (>60) 09/28/19 18:46 Glucose 131 mg/dL (75-110) H 09/28/19 18:46 Hemoglobin A1c % 6.5 % (4.7-6.0) H 09/28/19 18:46 Calcium 9.8 mg/dL (8.4-10.2) 09/28/19 18:46 Phosphorus 4.3 mg/dL (2.5-4.5) 09/28/19 18:46 Total Bilirubin 0.8 mg/dL (0.2-1.3) 09/28/19 11:25 Direct Bilirubin 0.0 mg/dL (0.0-0.4) 09/28/19 11:25 Neonat Total Bilirubin Not Reportable 09/28/19 11:25 Neonat Direct Bilirubin Not Reportable 09/28/19 11:25 Neonat Indirect Bili Not Reportable 09/28/19 11:25 AST 31 U/L (14-36) 09/28/19 11:25 ALT 28 U/L (<35) 09/28/19 11:25 Alkaline Phosphatase 108 U/L (38-126) 09/28/19 11:25 Creatine Kinase 43 U/L (30-135) 09/28/19 18:46 CK-MB (CK-2) 0.48 ng/mL (<4.55) 09/28/19 18:46 Troponin I < 0.012 ng/mL 09/29/19 07:25 Total Protein 8.0 g/dL (6.3-8.2) 09/28/19 11:25 Albumin 4.9 g/dL (3.5-5.0) 09/28/19 11:25 Serum HCG, Qual NEGATIVE (NEGATIVE) 09/28/19 18:46 Urine Color YELLOW 09/28/19 15:25 Urine Appearance CLEAR 09/28/19 15:25 Urine pH 8.0 (5.0-9.0) 09/28/19 15:25 Ur Specific [place] 1.014 09/28/19 15:25 Urine Protein NEGATIVE mg/dL (NEGATIVE) 09/28/19 15:25 Urine Glucose (UA) NEGATIVE mg/dL (NEGATIVE) 09/28/19 15:25 Urine Ketones 20 mg/dL (NEGATIVE) H 09/28/19 15:25 Urine Blood NEGATIVE (NEGATIVE) 09/28/19 15:25 Urine Nitrite NEGATIVE (NEGATIVE) 09/28/19 15:25 Urine Bilirubin NEGATIVE (NEGATIVE) 09/28/19 15:25 Urine Urobilinogen NEGATIVE mg/dL (<2.0) 09/28/19 15:25 Ur Leukocyte Esterase NEGATIVE (NEGATIVE) 09/28/19 15:25 Urine WBC (Auto) 0 /HPF 09/28/19 15:25 Urine Mucus (Auto) RARE /LPF 09/28/19 15:25 Urine Ascorbic Acid NEGATIVE (NEGATIVE) 09/28/19 15:25 09/28/19 09/28/19 09/28/19 11:25 18:46 18:46 CK-MB (CK-2) 0.48 Troponin I < 0.012 < 0.012 09/29/19 09/29/19 00:48 07:25 CK-MB (CK-2) Troponin I < 0.012 < 0.012 Impressions: Chest X-Ray 09/28/19 11:01 IMPRESSION: No acute cardiopulmonary process. Chest/Abdomen CTA 09/28/19 13:43 IMPRESSION: 1. Nonspecific mosaic attenuation pattern of the lung parenchyma. In the setting of thickening of the bronchial merrill clinical correlation to exclude an underlying small airways disease is recommended. 2. No central or segmental pulmonary embolus. Evaluation of the subsegmental branches of the pulmonary arteries is limited due to respiratory motion. Stroke Is this a Stroke Patient?: No Acute Heart Failure - Is this a Heart Failure Patient?: No
--- NOTE | 2019-09-29 21:51 | XCELERA REPORT ---
[address] [address] Transthoracic Echocardiogram Report Name: JACINTO BRISENO Age: 58 yrs Gender: Female : 1960 Patient Status: Inpatient Patient Location: [address] [place] [address] Study Date: 09/28/2019 06:17 PM Height: 65 in Weight: 196 lb BSA: 2.0 m2 Procedure: A two-dimensional transthoracic echocardiogram with color flow and Doppler was performed. Study Quality: Fair. Reason For Study: CHEST PAIN History: CHEST PAIN. Ordering Physician: JOSE F EASON Performed By: Azul Del Rio Interpretation Summary CHEST PAIN The left ventricle is normal in size. There is normal left ventricular wall thickness. LV EF is 65% Left ventricular systolic function is normal. Doppler measurements suggest impaired left ventricular relaxation, which is associated with grade I/IV or mild diastolic dysfunction The left ventricular wall motion is normal. There is no thrombus. No ASD , VSD ,or PFO seen. The right ventricle is normal in size and function. The right atrium is normal. The left atrial size is normal. There is no evidence of mitral valve prolapse. There is no vegetation seen on the mitral valve. There is no mitral valve stenosis. There is no mitral regurgitation noted. There is no aortic valvular vegetation. There is no aortic valve stenosis There is no LVOT obstruction. No aortic regurgitation is present. There is no tricuspid stenosis. No tricuspid regurgitation. Tricuspid regurgitation jet envelope not well defined to measure RV systolic pressure accurately. There is no pulmonic valvular stenosis. There is no pulmonic valvular regurgitation. The aortic root is normal size. The inferior vena cava appeared normal and decreased > 50% with respiration (RAP 5-10 mmHg) There is no pericardial effusion. MMode/2D Measurements & Calculations RVDd: 2.2 cm LVIDd: 5.0 cm FS: 37.2 % Ao root diam: 2.4 cm IVSd: 0.98 cm LVIDs: 3.2 cm EDV(Teich): 119.5 ml Ao root area: 4.6 cm2 LVPWd: 0.92 cm ESV(Teich): 39.5 ml LA dimension: 3.8 cm EF(Teich): 66.9 % Doppler Measurements & Calculations MV E max anuel: MV P1/2t max anuel: Ao V2 max: LV V1 max P.2 cm/sec 61.8 cm/sec 130.3 cm/sec 6.4 mmHg MV A max anuel: MV P1/2t: 45.9 msec Ao max PG: LV V1 max: 57.2 cm/sec MVA(P1/2t): 4.8 cm2 6.8 mmHg 126.0 cm/sec MV E/A: 1.0 MV dec slope: 394.5 cm/sec2 MV dec time: 0.19 sec PA V2 max: MV P1/2t-pr_phl: 104.7 cm/sec 45.9 msec PA max P.4 mmHg Left Ventricle The left ventricle is normal in size. There is normal left ventricular wall thickness. LV EF is 65%. Left ventricular systolic function is normal. Doppler measurements suggest impaired left ventricular relaxation, which is associated with grade I/IV or mild diastolic dysfunction. The left ventricular wall motion is normal. There is no thrombus. No ASD , VSD ,or PFO seen. Right Ventricle The right ventricle is normal in size and function. Atria The right atrium is normal. The left atrial size is normal. Mitral Valve There is no evidence of mitral valve prolapse. There is no vegetation seen on the mitral valve. There is no mitral valve stenosis. There is no mitral regurgitation noted. Aortic Valve There is no aortic valvular vegetation. There is no aortic valve stenosis. There is no LVOT obstruction. No aortic regurgitation is present. Tricuspid Valve There is no tricuspid stenosis. No tricuspid regurgitation. Tricuspid regurgitation jet envelope not well defined to measure RV systolic pressure accurately. Pulmonic Valve There is no pulmonic valvular stenosis. There is no pulmonic valvular regurgitation. Great Vessels The aortic root is normal size. The inferior vena cava appeared normal and decreased > 50% with respiration (RAP 5-10 mmHg). Effusions There is no pericardial effusion. : JOSE F EASON Lakshmi
--- NOTE | 2019-09-29 22:26 | DRAGON STRESS TEST REPORT ---
Intravenous Lexiscan Cardiolite stress test using single photon emmision computerized tomography. Date of procedure: 09/29/2019. Ordering Provider: Dr. Waddell. Patient's status: In Patient. Indication: Chest pain. Coronary risk factors: Age, and hypertension. Resting EKG: Sinus Rhythm. Minor nonspecific ST-T changes. Stress EKG: No changes of ischemia. The patient had no chest pain or discomfort, and there were no arrhythmias seen. Reason for termination: Protocol. Conclusions: Normal EKG and hemodynamic response to IV Lexiscan. Nuclear data: At rest the patient was given 13.46 millicuries of technetium 99m sestamibi injected intravenously. As per protocol rest non gated SPECT images were obtained. Subsequently the patient was given intravenous Lexiscan at a dose of 0.4 mg in 5 mL intravenously, followed by flush with normal saline. Subsequently the stress dose of 40.6 millicuries of technetium 99m sestamibi was injected intravenously. As per protocol stress gated images were obtained. Nuclear interpretation: Review of images showed that all segments of the myocardium had normal perfusion at rest, and normal perfusion post stress with IV Lexiscan. All segments of the myocardium had normal motion, contraction, and thickening by gated study. T. I D. ratio was normal at 1.18. There is no transient ischemic dilatation of the left ventricle. Computer read rest, and stress left ventricular ejection fraction were 68 %, and 60 %, respectively. Conclusion: 1. There is no scintigraphic evidence of Lexiscan induced myocardial ischemia. 2. There is no scintigraphic evidence of myocardial infarction/scar. Recommendations: Aggressive risk factor modification, and treating the underlying co- morbidities. MTDD
== END 2019-09-29 18:31 | disposition home or self-care (01) ==
LOC: ER 10:17 → INTOOBSV 16:58 → EH 16:58 → 3S 20:38
PROVIDERS: ADMIT Internal Medicine; ATTEND Internal Medicine
DX: R07.89 Other chest pain (principal); F41.9 Anxiety disorder, unspecified; M06.9 Rheumatoid arthritis, unspecified; R00.0 Tachycardia, unspecified; I10 Essential (primary) hypertension; R53.1 Weakness; R53.81 Other malaise; R06.00 Dyspnea, unspecified; M79.601 Pain in right arm; R42 Dizziness and giddiness; R45.1 Restlessness and agitation; Z79.899 Other long term (current) drug therapy; Z87.891 Personal history of nicotine dependence; Z59.9 Problem related to housing and economic circumstances, unspecified
CPT/HCPCS: 93005; 99285; 96374; 36415 ×2; 82553; 82550; 84100; 84703; 85025; 85610; 85730; 80053; 81001; 84484 ×2; 83036; 93306; 93017; 71046; 78452; 71275; 93010; G0378 ×3; A9500; J2785; S0119 ×2; J2060; J3490 ×2; Q9969